=== PATIENT | female | born 1970 | race African-American/Black ===

== ENCOUNTER 2016-07-19 19:18 | Inpatient (IN) | payer MEDICAID ==
[~2016-07-19] VITALS: Ht 177.8 cm; Wt 106.6 kg
[2016-07-19] MEDS ORDERED: ONDANSETRON HCL 4MG/2ML VIAL IV STA (19:47)
[2016-07-19] MEDS ORDERED: MORPHINE SULFATE 4 MG/ML CPJ (NOT FOR IM USE) IV STA (19:47)
[2016-07-19] MEDS ORDERED: METHYLPREDNISOLONE SOD SUCC 125 MG/2 ML VIAL IV STA (19:47)
[2016-07-19] MEDS ORDERED: AZITHROMYCIN 500 MG TABLET PO ONE (20:00)
[2016-07-19] MEDS ORDERED: CEFTRIAXONE 1 G PREMIX 50 ML IV ONE (20:00)
[2016-07-19] MEDS ORDERED: IPRATROPIUM/ALBUTEROL 0.5-3(2.5)MG/3ML NEB HHN ONE (20:00)
[2016-07-19] MEDS ORDERED: MAGNESIUM 2 G PREMIX 50 ML IV ONE (20:00)
[2016-07-19 20:09] LABS: BASOPHILS % 0.5 % (0.0-2.0); EOSINOPHILS % 0.4 % (0.0-5.0); HEMATOCRIT. 36.5 % (36.0-48.0); HEMOGLOBIN. 11.8 g/dL (12.0-16.0); LYMPHOCYTES % 35.3 % (20.0-50.0); MEAN CORPUSCULAR HEMOGLOBIN 26.9 pg (28.0-32.0); MEAN CORPUSCULAR HGB CONC 32.2 g/dL (31.0-37.0); MEAN CORPUSCULAR VOLUME 83.5 fL (81.0-99.0); MEAN PLATELET VOLUME 9.4 fl (7.4-10.4); MONOCYTES % 11.4 % (2.0-8.0); NEUTROPHILS % 52.4 % (40.0-76.0); PLATELET 181 x1000/uL (130-400); RED BLOOD CELL COUNT 4.37 mill/uL (4.2-5.4); RED CELL DISTRIBUTION WIDTH 18.9 % (11.6-14.6); WHITE BLOOD COUNT 11.3 x1000/uL (4.5-11.0)
[2016-07-19 20:17] LABS: PARTIAL THROMBOPLASTIN TIME 24.1 sec (24.0-34.0); PROTHROMBIN TIME 10.3 sec
[2016-07-19 20:23] LABS: BG BASE EXCESS -1.3 mmol/L (-2.0-2.0); BG CARBOXYHEMOGLOBIN 1.9 % (0.5-1.5); BG DEOXYHEMOGLOBIN 1.4 % (0.0-5.0); BG FRACTION INSPIRED OXYGEN 50; BG HCO3 ACT 22.6 mmol/L (22.0-26.0); BG METHEMOGLOBIN 0.1 % (0.0-1.5); BG OXYGEN SATURATION 98.6 % (92.0-98.5); BG OXYHEMOGLOBIN 96.6 % (94.0-97.0); BG PCO2 35.3 mmHg (35.0-45.0); BG PH 7.425 (7.350-7.450); BG PO2 134.3 mmHg (75.0-100.0); BG SAMPLE SITE RIGHT RADIAL; BG VENT MODE MASK - AEROSOL
[2016-07-19 20:26] LABS: ALANINE AMINOTRANSFERASE 20 IU/L (13-61); ALBUMIN 3.3 g/dL (3.4-5.0); ANION GAP 11; CALCIUM 8.6 mg/dL (8.5-10.1); CARBON DIOXIDE 27 mEq/L (21-32); CHLORIDE 106 mEq/L (98-107); CREATINE KINASE 96 IU/L (26-192); INDEX HEMOLYSI 1 (1-3); INDEX ICTERIC 1 (1-4); INDEX LIPEMIC 1 (1-3); LIPASE 145 IU/L (73-393); NT PRO B-TYPE NATRIURETIC PEP 130 pg/mL (5-125); TROPONIN I < 0.02 ng/mL (0.00-0.04); UREA NITROGEN BLOOD 13 mg/dL (7-21); eGFR > 60 mL/min (>60)
[2016-07-19 20:28] LABS: HCG SCREEN NEGATIVE
[2016-07-19 23:09] LABS: CLARITY URINE CLEAR (CLEAR); COLOR URINE YELLOW (YELLOW); GLUCOSE URINE NEGATIVE (NEGATIVE); KETONES URINE NEGATIVE (NEGATIVE); LEUKOCYTE ESTERASE URINE TRACE (NEGATIVE); NITRITE URINE NEGATIVE (NEGATIVE); OCCULT BLOOD URINE TRACE (NEGATIVE); PH URINE 5.5 (4.5-8.0); PROTEIN URINE NEGATIVE (NEGATIVE); SPECIFIC GRAVITY URINE 1.016 (1.005-1.030); UROBILINOGEN URINE 0.2 E.U./dL (0.2-1.0)
[2016-07-19 23:23] LABS: *AMPHETAMINES SCREEN URINE NEGATIVE (NEGATIVE); *BARBITURATES SCREEN URINE NEGATIVE (NEGATIVE); *BENZODIAZEPINES SCREEN URINE NEGATIVE (NEGATIVE); *COCAINE SCREEN URINE NEGATIVE (NEGATIVE); CANNABINOID URINE SCREEN NEGATIVE (NEGATIVE); ECSTASY MDMA SCREEN URINE NEGATIVE (NEGATIVE); METHADONE URINE SCREEN NEGATIVE (NEGATIVE); PHENCYCLIDINE URINE SCREEN NEGATIVE (NEGATIVE); RBC URINE 0-2 /hpf (0-2); SQUAMOUS EPITHELIAL CELL URINE FEW /lpf (RARE/1+); WBC URINE 0-2 /hpf (0-2)
[2016-07-19 23:24] LABS: BACTERIA URINE 1+
[2016-07-19 23:26] LABS: OPIATES URINE SCREEN PRESUMTIVE POSITIVE (NEGATIVE)
[2016-07-20] MEDS ORDERED: KETOROLAC 30MG/ML VIAL IV ONE (00:15)
[2016-07-20] MEDS ORDERED: MORPHINE SULFATE 4 MG/ML CPJ (NOT FOR IM USE) IV ONE (00:15)
[2016-07-20] MEDS ORDERED: ONDANSETRON HCL 4MG/2ML VIAL IV ONE (00:15)
[2016-07-20 04:00] VITALS: BP 133/69
[2016-07-20 04:56] VITALS: BP 133/69
[2016-07-20] MEDS ORDERED: IPRATROPIUM/ALBUTEROL 0.5-3(2.5)MG/3ML NEB HHN PRN ×2 (06:15→14:15)
[2016-07-20] MEDS: METHYLPREDNISOLONE SOD SUCC 40 MG/ML VIAL IV SCH ×3 (07:00→21:35)
[2016-07-20] MEDS ORDERED: PRED10SO PO (07:24)
[2016-07-20 07:51] LABS: HEMATOCRIT. 33.9 % (36.0-48.0); HEMOGLOBIN. 10.9 g/dL (12.0-16.0); MEAN CORPUSCULAR HEMOGLOBIN 26.8 pg (28.0-32.0); MEAN CORPUSCULAR VOLUME 83.7 fL (81.0-99.0); PLATELET 176 x1000/uL (130-400); RED BLOOD CELL COUNT 4.06 mill/uL (4.2-5.4); RED CELL DISTRIBUTION WIDTH 18.7 % (11.6-14.6); WHITE BLOOD COUNT 9.9 x1000/uL (4.5-11.0)
[2016-07-20 08:00] VITALS: BP 123/82
[2016-07-20 08:23] LABS: CREATINE KINASE 72 IU/L (26-192); CREATINE KINASE MB FRACTION 0.6 ng/mL (0.5-3.6); HDL CHOLESTEROL 64 mg/dL (40-59); INDEX HEMOLYSI 1 (1-3); INDEX ICTERIC 1 (1-4); INDEX LIPEMIC 1 (1-3); LDL CHOLESTEROL 102 mg/dL (5-100); TRIGLYCERIDE 28 mg/dL (0-150); TROPONIN I < 0.02 ng/mL (0.00-0.04)
[2016-07-20] MEDS ORDERED: ENOXAPARIN 30MG/0.3ML SYR SUBCUT SCH (09:00)
[2016-07-20] MEDS ORDERED: ACETAMINOPHEN 325MG TABLET PO PRN (09:15)
[2016-07-20 11:16] LABS: ATYPICAL LYMPHOCYTES 2
[2016-07-20 11:17] LABS: PLATELET ESTIMATE NORMAL
[2016-07-20 12:00] VITALS: BP 133/87
[2016-07-20] MEDS: MORPHINE SULFATE 2 MG/ML CPJ (NOT FOR IM USE) IV PRN ×2 (14:02→19:22)
[2016-07-20] MEDS ORDERED: LIDOCAINE HCL/PF 1% 2ML VIAL ONE (15:24)
[2016-07-20 16:00] VITALS: BP 153/92
[2016-07-20 16:00] LABS: CREATINE KINASE 68 IU/L (26-192); CREATINE KINASE MB FRACTION < 0.5 ng/mL (0.5-3.6); INDEX HEMOLYSI 1 (1-3); TROPONIN I < 0.02 ng/mL (0.00-0.04)
[2016-07-20 16:00] LABS: BG BASE EXCESS -0.6 mmol/L (-2.0-2.0); BG CARBOXYHEMOGLOBIN 0.4 % (0.5-1.5); BG DEOXYHEMOGLOBIN 5.1 % (0.0-5.0); BG FRACTION INSPIRED OXYGEN 21; BG HCO3 ACT 23.5 mmol/L (22.0-26.0); BG OXYGEN SATURATION 94.9 % (92.0-98.5); BG OXYHEMOGLOBIN 94.5 % (94.0-97.0); BG PCO2 36.4 mmHg (35.0-45.0); BG PH 7.427 (7.350-7.450); BG PO2 75.8 mmHg (75.0-100.0); BG SAMPLE SITE RIGHT RADIAL; BG VENT MODE ROOM AIR
[2016-07-20 20:00] VITALS: BP 147/93
[2016-07-20] MEDS: CEFTRIAXONE 1 G PREMIX 50 ML IV SCH (20:41)
[2016-07-20] MEDS: GUAIFENESIN 600MG ER TABLET PO SCH (20:42)
[2016-07-20] MEDS: ENOXAPARIN 30MG/0.3ML SYR SUBCUT SCH (20:42)
[2016-07-20] MEDS: IPRATROPIUM/ALBUTEROL 0.5-3(2.5)MG/3ML NEB HHN SCH (21:27)
[2016-07-20] MEDS: LOSARTAN POTASSIUM 25 MG TABLET PO SCH (21:33)
[2016-07-20] MEDS: AZITHROMYCIN 500 MG in DEXT 5% WATER 250 ML IV SCH (21:34)
[2016-07-20] MEDS: ATORVASTATIN CALCIUM 40MG TABLET PO SCH (21:34)
[2016-07-21] VITALS: BP 135/85
[2016-07-21] MEDS: IPRATROPIUM/ALBUTEROL 0.5-3(2.5)MG/3ML NEB HHN SCH ×6 (00:37→20:49)
[2016-07-21] MEDS: MORPHINE SULFATE 2 MG/ML CPJ (NOT FOR IM USE) IV PRN ×2 (03:08→13:46)
[2016-07-21 04:00] VITALS: BP 140/85
[2016-07-21] MEDS: METHYLPREDNISOLONE SOD SUCC 40 MG/ML VIAL IV SCH ×2 (06:20→13:46)
[2016-07-21] MEDS: GUAIFENESIN 200MG/10ML SUGAR FREE UDC PO PRN ×2 (06:20→13:53)
[2016-07-21 06:36] LABS: BASOPHILS % 0.3 % (0.0-2.0); HEMATOCRIT. 32.7 % (36.0-48.0); HEMOGLOBIN. 10.4 g/dL (12.0-16.0); LYMPHOCYTES % 17.8 % (20.0-50.0); MEAN CORPUSCULAR HEMOGLOBIN 26.6 pg (28.0-32.0); MEAN CORPUSCULAR HGB CONC 31.9 g/dL (31.0-37.0); MEAN CORPUSCULAR VOLUME 83.6 fL (81.0-99.0); MEAN PLATELET VOLUME 10.5 fl (7.4-10.4); MONOCYTES % 6.1 % (2.0-8.0); NEUTROPHILS % 75.8 % (40.0-76.0); PLATELET 180 x1000/uL (130-400); RED BLOOD CELL COUNT 3.91 mill/uL (4.2-5.4); RED CELL DISTRIBUTION WIDTH 18.9 % (11.6-14.6); WHITE BLOOD COUNT 14.9 x1000/uL (4.5-11.0)
[2016-07-21 07:33] LABS: ANION GAP 12; CALCIUM 8.2 mg/dL (8.5-10.1); CARBON DIOXIDE 25 mEq/L (21-32); CHLORIDE 106 mEq/L (98-107); INDEX HEMOLYSI 1 (1-3); INDEX ICTERIC 1 (1-4); INDEX LIPEMIC 1 (1-3); MAGNESIUM 2.6 mg/dL (1.8-2.4); UREA NITROGEN BLOOD 17 mg/dL (7-21); eGFR > 60 mL/min (>60)
[2016-07-21 07:54] VITALS: BP 124/75
[2016-07-21] MEDS: ASPIRIN 81MG TABLET PO SCH (08:59)
[2016-07-21] MEDS: ENOXAPARIN 30MG/0.3ML SYR SUBCUT SCH ×2 (09:00→21:25)
[2016-07-21] MEDS: GUAIFENESIN 600MG ER TABLET PO SCH ×2 (09:00→21:25)
[2016-07-21] MEDS: LOSARTAN POTASSIUM 25 MG TABLET PO SCH ×2 (09:00→21:25)
[2016-07-21 11:58] VITALS: BP 132/72
[2016-07-21 16:00] VITALS: BP 141/83
[2016-07-21 20:00] VITALS: BP 141/76
[2016-07-21] MEDS: CEFTRIAXONE 1 G PREMIX 50 ML IV SCH (20:14)
[2016-07-21] MEDS: ATORVASTATIN CALCIUM 40MG TABLET PO SCH (21:25)
[2016-07-21] MEDS: AZITHROMYCIN 500 MG in DEXT 5% WATER 250 ML IV SCH (21:25)
[2016-07-22] VITALS (7 sets, daily range): BP systolic 110–136; BP diastolic 59–75
[2016-07-22] MEDS: IPRATROPIUM/ALBUTEROL 0.5-3(2.5)MG/3ML NEB HHN SCH ×6 (00:44→19:55)
[2016-07-22] MEDS: GUAIFENESIN 200MG/10ML SUGAR FREE UDC PO PRN ×2 (01:04→05:44)
[2016-07-22] MEDS: MORPHINE SULFATE 2 MG/ML CPJ (NOT FOR IM USE) IV PRN (01:05)
[2016-07-22] MEDS: GUAIFENESIN 600MG ER TABLET PO SCH ×2 (09:04→20:42)
[2016-07-22] MEDS: PREDNISONE 20MG TABLET PO SCH (09:04)
[2016-07-22] MEDS: ENOXAPARIN 30MG/0.3ML SYR SUBCUT SCH ×2 (09:04→20:42)
[2016-07-22] MEDS: LOSARTAN POTASSIUM 25 MG TABLET PO SCH ×2 (09:04→20:43)
[2016-07-22] MEDS: ASPIRIN 81MG TABLET PO SCH (09:04)
[2016-07-22] MEDS: HYDROCODONE/ACETAMINOPHEN 5/325MG TABLET PO PRN (09:14)
[2016-07-22 12:18] LABS: BASOPHILS % 0.6 % (0.0-2.0); EOSINOPHILS % 0.1 % (0.0-5.0); HEMOGLOBIN. 10.8 g/dL (12.0-16.0); MEAN CORPUSCULAR HEMOGLOBIN 26.8 pg (28.0-32.0); MEAN CORPUSCULAR HGB CONC 31.6 g/dL (31.0-37.0); MEAN CORPUSCULAR VOLUME 84.8 fL (81.0-99.0); MONOCYTES % 10.5 % (2.0-8.0); NEUTROPHILS % 67.8 % (40.0-76.0); PLATELET 164 x1000/uL (130-400); RED BLOOD CELL COUNT 4.02 mill/uL (4.2-5.4); RED CELL DISTRIBUTION WIDTH 18.9 % (11.6-14.6); WHITE BLOOD COUNT 15.4 x1000/uL (4.5-11.0)
[2016-07-22 13:18] LABS: ANION GAP 15; CALCIUM 8.3 mg/dL (8.5-10.1); CARBON DIOXIDE 25 mEq/L (21-32); CHLORIDE 107 mEq/L (98-107); INDEX HEMOLYSI 1 (1-3); INDEX ICTERIC 1 (1-4); INDEX LIPEMIC 1 (1-3); UREA NITROGEN BLOOD 14 mg/dL (7-21); eGFR > 60 mL/min (>60)
[2016-07-22] MEDS: CEFTRIAXONE 1 G PREMIX 50 ML IV SCH (19:27)
[2016-07-22] MEDS: AZITHROMYCIN 500 MG in DEXT 5% WATER 250 ML IV SCH (20:42)
[2016-07-22] MEDS: ATORVASTATIN CALCIUM 40MG TABLET PO SCH (20:42)
[2016-07-23] MEDS: GUAIFENESIN 200MG/10ML SUGAR FREE UDC PO PRN ×2 (01:01→08:58)
[2016-07-23] MEDS: HYDROCODONE/ACETAMINOPHEN 5/325MG TABLET PO PRN (01:01)
[2016-07-23] MEDS: IPRATROPIUM/ALBUTEROL 0.5-3(2.5)MG/3ML NEB HHN SCH ×5 (01:08→21:14)
[2016-07-23 04:00] VITALS: BP 129/74
[2016-07-23 06:01] LABS: ANION GAP 12; CALCIUM 7.9 mg/dL (8.5-10.1); CARBON DIOXIDE 28 mEq/L (21-32); CHLORIDE 106 mEq/L (98-107); INDEX HEMOLYSI 1 (1-3); INDEX ICTERIC 1 (1-4); INDEX LIPEMIC 1 (1-3); MAGNESIUM 2.2 mg/dL (1.8-2.4); UREA NITROGEN BLOOD 17 mg/dL (7-21); eGFR > 60 mL/min (>60)
[2016-07-23 06:46] LABS: BASOPHILS % 0.3 % (0.0-2.0); EOSINOPHILS % 0.5 % (0.0-5.0); HEMATOCRIT. 31.8 % (36.0-48.0); MEAN CORPUSCULAR HEMOGLOBIN 26.5 pg (28.0-32.0); MEAN CORPUSCULAR HGB CONC 31.5 g/dL (31.0-37.0); MEAN CORPUSCULAR VOLUME 84.2 fL (81.0-99.0); MEAN PLATELET VOLUME 10.7 fl (7.4-10.4); MONOCYTES % 9.6 % (2.0-8.0); NEUTROPHILS % 47.6 % (40.0-76.0); PLATELET 175 x1000/uL (130-400); RED BLOOD CELL COUNT 3.77 mill/uL (4.2-5.4); RED CELL DISTRIBUTION WIDTH 18.7 % (11.6-14.6); WHITE BLOOD COUNT 15.2 x1000/uL (4.5-11.0)
[2016-07-23 08:00] VITALS: BP 134/93
[2016-07-23] MEDS: ASPIRIN 81MG TABLET PO SCH (08:55)
[2016-07-23] MEDS: LOSARTAN POTASSIUM 25 MG TABLET PO SCH ×2 (08:55→20:57)
[2016-07-23] MEDS: PREDNISONE 20MG TABLET PO SCH (08:55)
[2016-07-23] MEDS: ENOXAPARIN 30MG/0.3ML SYR SUBCUT SCH ×2 (08:55→20:57)
[2016-07-23] MEDS: GUAIFENESIN 600MG ER TABLET PO SCH ×2 (08:55→20:57)
[2016-07-23 12:00] VITALS: BP 128/88
[2016-07-23 15:47] VITALS: BP 144/86
[2016-07-23 20:00] VITALS: BP 130/70
[2016-07-23] MEDS: AZITHROMYCIN 500 MG in DEXT 5% WATER 250 ML IV SCH (20:56)
[2016-07-23] MEDS: ATORVASTATIN CALCIUM 40MG TABLET PO SCH (20:57)
[2016-07-23] MEDS: CEFTRIAXONE 1 G PREMIX 50 ML IV SCH (20:57)
[2016-07-24] VITALS: BP 123/64
[2016-07-24] MEDS: IPRATROPIUM/ALBUTEROL 0.5-3(2.5)MG/3ML NEB HHN SCH ×4 (00:42→12:00)
[2016-07-24] MEDS: HYDROCODONE/ACETAMINOPHEN 5/325MG TABLET PO PRN ×2 (00:51→09:35)
[2016-07-24] MEDS: GUAIFENESIN 200MG/10ML SUGAR FREE UDC PO PRN (00:51)
[2016-07-24 04:00] VITALS: BP 124/72
[2016-07-24 08:00] VITALS: BP 139/89
[2016-07-24] MEDS: ENOXAPARIN 30MG/0.3ML SYR SUBCUT SCH (09:22)
[2016-07-24] MEDS: ASPIRIN 81MG TABLET PO SCH (09:23)
[2016-07-24] MEDS: GUAIFENESIN 600MG ER TABLET PO SCH (09:23)
[2016-07-24] MEDS: LOSARTAN POTASSIUM 25 MG TABLET PO SCH (09:23)
[2016-07-24] MEDS: PREDNISONE 20MG TABLET PO SCH (09:23)
[2016-07-24 12:00] VITALS: BP 128/66
[2016-07-24 13:30] VITALS: BP 128/66
== END 2016-07-24 15:15 | disposition home or self-care (01) | DRG 141 ==
LOC: ER 19:30 → 6WST 20:57
PROVIDERS: ADMIT Internal Medicine; ATTEND Internal Medicine
DX: J45.901 Unspecified asthma with (acute) exacerbation (principal); J96.00 Acute respiratory failure, unspecified whether with hypoxia or hypercapnia; I50.23 Acute on chronic systolic (congestive) heart failure; J18.9 Pneumonia, unspecified organism; R65.10 Systemic inflammatory response syndrome (SIRS) of non-infectious origin without acute organ dysfunction; I11.0 Hypertensive heart disease with heart failure; N39.0 Urinary tract infection, site not specified; E66.01 Morbid (severe) obesity due to excess calories; D64.9 Anemia, unspecified; D72.829 Elevated white blood cell count, unspecified; F17.210 Nicotine dependence, cigarettes, uncomplicated; I25.119 Atherosclerotic heart disease of native coronary artery with unspecified angina pectoris; I51.7 Cardiomegaly; J42 Unspecified chronic bronchitis; R63.4 Abnormal weight loss; L30.9 Dermatitis, unspecified; E78.5 Hyperlipidemia, unspecified; N89.8 Other specified noninflammatory disorders of vagina; T38.0X5A Adverse effect of glucocorticoids and synthetic analogues, initial encounter; Z79.899 Other long term (current) drug therapy; Z79.82 Long term (current) use of aspirin; Z82.49 Family history of ischemic heart disease and other diseases of the circulatory system; Z68.33 Body mass index [BMI] 33.0-33.9, adult
CPT/HCPCS: 36415; 36600; 71010; 80048; 80053; 80061; 80305; 81001; 82375; 82550; 82553; 82805; 83605; 83690; 83735; 83880; 84484; 84703; 85007; 85025; 85027; 85610; 85730; 87040; 87070; 87086; 93005; 93306; 94640; 94664; 96365; 96375; 96376; 99285; 99406; J0456; J0696; J1650; J1885; J2270; J2405; J2920; J2930; J3475; J3490; J7040; J7060; J7512; J7620

== ENCOUNTER 2016-09-27 14:27 | Emergency (ER) | payer MEDICAID ==
[~2016-09-27] VITALS: Ht 177.8 cm; Wt 123.0 kg
[~2016-09-27 14:27] MED LIST: PRED10SO PO
[2016-09-27] MEDS ORDERED: LIDOCAINE HCL/PF 1% 2ML VIAL ONE (15:26)
[2016-09-27 15:51] LABS: BASOPHILS % 0.7 % (0.0-2.0); EOSINOPHILS % 0.8 % (0.0-5.0); HEMATOCRIT. 37.5 % (36.0-48.0); HEMOGLOBIN. 11.9 g/dL (12.0-16.0); LYMPHOCYTES % 33.5 % (20.0-50.0); MEAN CORPUSCULAR HEMOGLOBIN 27.3 pg (28.0-32.0); MEAN CORPUSCULAR HGB CONC 31.9 g/dL (31.0-37.0); MEAN CORPUSCULAR VOLUME 85.8 fL (81.0-99.0); MEAN PLATELET VOLUME 10.1 fl (7.4-10.4); MONOCYTES % 7.4 % (2.0-8.0); NEUTROPHILS % 57.6 % (40.0-76.0); PLATELET 208 x1000/uL (130-400); RED BLOOD CELL COUNT 4.37 mill/uL (4.2-5.4); RED CELL DISTRIBUTION WIDTH 18.8 % (11.6-14.6); WHITE BLOOD COUNT 14.2 x1000/uL (4.5-11.0)
[2016-09-27 16:03] LABS: ALANINE AMINOTRANSFERASE 20 IU/L (13-61); ALBUMIN 3.3 g/dL (3.4-5.0); ANION GAP 12; CALCIUM 8.9 mg/dL (8.5-10.1); CARBON DIOXIDE 28 mEq/L (21-32); CHLORIDE 106 mEq/L (98-107); INDEX HEMOLYSI 1 (1-3); INDEX ICTERIC 1 (1-4); INDEX LIPEMIC 1 (1-3); NT PRO B-TYPE NATRIURETIC PEP 162 pg/mL (5-125); TROPONIN I < 0.02 ng/mL (0.00-0.04); UREA NITROGEN BLOOD 14 mg/dL (7-21); eGFR > 60 mL/min (>60)
[2016-09-27] MEDS ORDERED: IPRATROPIUM BROMIDE (0.02%) 0.5MG/2.5ML NEB HHN STA (16:03)
[2016-09-27] MEDS ORDERED: METHYLPREDNISOLONE SOD SUCC 125 MG/2 ML VIAL IV STA (16:03)
[2016-09-27] MEDS: ALBUTEROL (0.083%) 2.5MG/3ML NEB HHN SCH ×3 (16:27→17:30)
[2016-09-27 16:51] LABS: BG BASE EXCESS -0.1 mmol/L (-2.0-2.0); BG CARBOXYHEMOGLOBIN 2.9 % (0.5-1.5); BG DEOXYHEMOGLOBIN 3.5 % (0.0-5.0); BG FRACTION INSPIRED OXYGEN 21; BG HCO3 ACT 23.7 mmol/L (22.0-26.0); BG METHEMOGLOBIN 0.1 % (0.0-1.5); BG OXYGEN SATURATION 96.4 % (92.0-98.5); BG OXYHEMOGLOBIN 93.5 % (94.0-97.0); BG PCO2 35.8 mmHg (35.0-45.0); BG PH 7.438 (7.350-7.450); BG PO2 84.3 mmHg (75.0-100.0); BG SAMPLE SITE RIGHT RADIAL; BG TOTAL HEMOGLOBIN 12.4 g/dL (12.0-18.0); BG VENT MODE ROOM AIR
[2016-09-27 19:31] VITALS: BP 134/98
== END 2016-09-27 21:45 | disposition home or self-care (01) ==
LOC: ER 15:14
DX: J45.901 Unspecified asthma with (acute) exacerbation (principal); F17.200 Nicotine dependence, unspecified, uncomplicated; I10 Essential (primary) hypertension; Z85.3 Personal history of malignant neoplasm of breast; Z90.89 Acquired absence of other organs
CPT/HCPCS: 36415; 36600; 71010; 80053; 82375; 82805; 83880; 84484; 85025; 85610; 93005; 94640; 96374; 99285; J2930; J3490; J7611; Z7610

== ENCOUNTER 2016-12-17 19:51 | Emergency (ER) | payer MEDICAID ==
[~2016-12-17] VITALS: Ht 177.8 cm; Wt 125.0 kg
[2016-12-17] MEDS ORDERED: METHYLPREDNISOLONE SOD SUCC 125 MG/2 ML VIAL IV ONE (21:15)
[2016-12-17] MEDS ORDERED: IPRATROPIUM/ALBUTEROL 0.5-3(2.5)MG/3ML NEB HHN ONE (21:15)
[2016-12-17] MEDS ORDERED: IPRATROPIUM BROMIDE (0.02%) 0.5MG/2.5ML NEB HHN ONE (22:00)
[2016-12-17] MEDS ORDERED: ALBUTEROL (0.083%) 2.5MG/3ML NEB HHN ONE (22:00)
[2016-12-18 00:11] LABS: CLARITY URINE CLEAR (CLEAR); COLOR URINE YELLOW (YELLOW); GLUCOSE URINE 1+ (NEGATIVE); KETONES URINE NEGATIVE (NEGATIVE); LEUKOCYTE ESTERASE URINE NEGATIVE (NEGATIVE); NITRITE URINE NEGATIVE (NEGATIVE); OCCULT BLOOD URINE 1+ (NEGATIVE); PROTEIN URINE NEGATIVE (NEGATIVE); SPECIFIC GRAVITY URINE 1.018 (1.005-1.030)
[2016-12-18 00:21] LABS: *AMPHETAMINES SCREEN URINE NEGATIVE (NEGATIVE); *BARBITURATES SCREEN URINE NEGATIVE (NEGATIVE); *BENZODIAZEPINES SCREEN URINE NEGATIVE (NEGATIVE); *COCAINE SCREEN URINE NEGATIVE (NEGATIVE); METHADONE URINE SCREEN NEGATIVE (NEGATIVE); OPIATES URINE SCREEN NEGATIVE (NEGATIVE); PHENCYCLIDINE URINE SCREEN NEGATIVE (NEGATIVE)
[2016-12-18 00:34] LABS: CHLORIDE 106 mEq/L (98-107)
[2016-12-18 00:45] LABS: CARBON DIOXIDE 21 mEq/L (21-32)
[2016-12-18] MEDS ORDERED: ACETAMINOPHEN 500MG TABLET PO ONE (00:45)
[2016-12-18 00:46] LABS: CANNABINOID URINE SCREEN PRESUMTIVE POSITIVE (NEGATIVE)
[2016-12-18 00:57] LABS: BASOPHILS % 0.4 % (0.0-2.0); EOSINOPHILS % 0.3 % (0.0-5.0); HEMATOCRIT. 36.9 % (36.0-48.0); HEMOGLOBIN. 11.9 g/dL (12.0-16.0); LYMPHOCYTES % 9.5 % (20.0-50.0); MEAN CORPUSCULAR HEMOGLOBIN 27.9 pg (28.0-32.0); MEAN CORPUSCULAR VOLUME 86.6 fL (81.0-99.0); MEAN PLATELET VOLUME 10.9 fl (7.4-10.4); MONOCYTES % 2.3 % (2.0-8.0); NEUTROPHILS % 87.5 % (40.0-76.0); PLATELET 179 x1000/uL (130-400); RED BLOOD CELL COUNT 4.27 mill/uL (4.2-5.4); RED CELL DISTRIBUTION WIDTH 16.9 % (11.6-14.6)
[2016-12-18] MEDS ORDERED: POTASSIUM CHLORIDE INJ 40 MEQ in DEXT 5% WATER 500 ML IV ONE (02:30)
[2016-12-18] MEDS ORDERED: POTASSIUM CHLORIDE 20MEQ TABLET SR PO ONE (03:00)
[2016-12-18 03:10] VITALS: BP 165/68
== END 2016-12-18 03:12 | disposition home or self-care (01) ==
LOC: ER 19:51 → CANBEDREQ 12-18 06:53
DX: J45.901 Unspecified asthma with (acute) exacerbation (principal); E87.6 Hypokalemia; I10 Essential (primary) hypertension; F17.210 Nicotine dependence, cigarettes, uncomplicated
CPT/HCPCS: 36415; 71010; 80053; 80305; 81001; 83880; 85025; 93005; 94640; 94644; 96374; 99285; J2930; J7611; Z7610; 81003; J3480; J7060; J7620

== ENCOUNTER 2017-12-06 16:16 | Inpatient (IN) | payer MEDICAID ==
[~2017-12-06] VITALS: Ht 177.8 cm; Wt 107.6 kg
[2017-12-06] MEDS ORDERED: IPRATROPIUM BROMIDE (0.02%) 0.5MG/2.5ML NEB HHN STA (17:04)
[2017-12-06] MEDS ORDERED: ALBUTEROL (0.083%) 2.5MG/3ML NEB HHN STA (17:04)
[2017-12-06] MEDS ORDERED: PREDNISONE 20MG TABLET PO STA (17:04)
[2017-12-06 18:34] LABS: BASOPHILS % 0.9 % (0.0-2.0); EOSINOPHILS % 2.7 % (0.0-5.0); HEMATOCRIT. 35.3 % (36.0-48.0); HEMOGLOBIN. 11.3 g/dL (12.0-16.0); LYMPHOCYTES % 32.7 % (20.0-50.0); MEAN CORPUSCULAR HEMOGLOBIN 28.4 pg (28.0-32.0); MEAN CORPUSCULAR VOLUME 88.3 fL (81.0-99.0); MEAN PLATELET VOLUME 10.5 fl (7.4-10.4); MONOCYTES % 9.9 % (2.0-8.0); NEUTROPHILS % 53.8 % (40.0-76.0); PLATELET 178 x1000/uL (130-400); RED BLOOD CELL COUNT 3.99 mill/uL (4.2-5.4); RED CELL DISTRIBUTION WIDTH 16.1 % (11.6-14.6)
[2017-12-06 18:36] LABS: CHLORIDE 110 mEq/L (98-107)
[2017-12-06 18:37] LABS: INR 1.1; PROTHROMBIN TIME 10.9 sec (9.4-11.6)
[2017-12-06] MEDS ORDERED: ALBUTEROL (0.5%) 2.5MG/0.5ML NEB HHN ONE ×3 (19:30→20:45)
[2017-12-06 21:23] LABS: CLARITY URINE CLEAR (CLEAR); COLOR URINE YELLOW (YELLOW); KETONES URINE NEGATIVE (NEGATIVE); LEUKOCYTE ESTERASE URINE NEGATIVE (NEGATIVE); NITRITE URINE NEGATIVE (NEGATIVE); OCCULT BLOOD URINE TRACE (NEGATIVE); PROTEIN URINE NEGATIVE (NEGATIVE); SPECIFIC GRAVITY URINE 1.021 (1.005-1.030)
[2017-12-06 23:20] VITALS: BP 152/91
[2017-12-06 23:21] VITALS: BP 152/91
[2017-12-06] MEDS ORDERED: LOSA50TA20 PO (23:54)
[2017-12-07] MEDS ORDERED: ACETAMINOPHEN 325MG TABLET PO PRN
[2017-12-07] MEDS ORDERED: ONDANSETRON 4MG ODT PO PRN
[2017-12-07] MEDS ORDERED: CLONIDINE 0.1MG TABLET PO PRN
[2017-12-07] MEDS: GUAIFENESIN-DM 200MG-20MG/10ML UDC PO PRN ×2 (00:23→11:53)
[2017-12-07] MEDS: IPRATROPIUM/ALBUTEROL 0.5-3(2.5)MG/3ML NEB HHN PRN ×2 (00:39→07:56)
[2017-12-07 03:57] VITALS: BP 151/70
[2017-12-07 07:12] LABS: BASOPHILS % 0.3 % (0.0-2.0); HEMATOCRIT. 36.5 % (36.0-48.0); HEMOGLOBIN. 11.9 g/dL (12.0-16.0); LYMPHOCYTES % 12.1 % (20.0-50.0); MEAN CORPUSCULAR HEMOGLOBIN 28.9 pg (28.0-32.0); MEAN CORPUSCULAR VOLUME 88.5 fL (81.0-99.0); MEAN PLATELET VOLUME 10.7 fl (7.4-10.4); MONOCYTES % 3.5 % (2.0-8.0); NEUTROPHILS % 84.1 % (40.0-76.0); PLATELET 184 x1000/uL (130-400); RED BLOOD CELL COUNT 4.12 mill/uL (4.2-5.4); RED CELL DISTRIBUTION WIDTH 16.4 % (11.6-14.6)
[2017-12-07 08:00] VITALS: BP 153/70
[2017-12-07] MEDS ORDERED: LOSARTAN POTASSIUM 50 MG TABLET PO SCH (09:00)
[2017-12-07] MEDS ORDERED: MEDICATION NOT ON FORMULARY EA (Losartan Potassium 50 MG) PO SCH (09:00)
[2017-12-07] MEDS ORDERED: METHYLPREDNISOLONE SOD SUCC 40 MG/ML VIAL IV SCH (10:00)
[2017-12-07] MEDS ORDERED: BUDESONIDE 0.5MG/2ML NEB HHN SCH (11:00)
[2017-12-07] MEDS ORDERED: LORATADINE 10MG TABLET PO SCH (11:00)
[2017-12-07] MEDS ORDERED: FAMOTIDINE 20MG/2ML VIAL IV SCH (11:00)
[2017-12-07 12:00] VITALS: BP 147/62
[2017-12-07] MEDS ORDERED: IPRATROPIUM/ALBUTEROL 0.5-3(2.5)MG/3ML NEB HHN SCH (12:00)
[2017-12-07 12:34] VITALS: BP 147/62
[2017-12-07] MEDS ORDERED: MONTELUKAST SODIUM 10MG TABLET PO SCH (17:00)
[2017-12-07] MEDS ORDERED: PREDNISONE 20MG TABLET PO SCH (17:40)
== END 2017-12-07 12:50 | disposition home or self-care (01) | DRG 140 ==
LOC: ER 16:47 → 8WST 21:22 → EDBEDREQ 21:23 → ENRESERV 21:33
PROVIDERS: ADMIT Internal Medicine; ATTEND Internal Medicine
DX: J44.1 Chronic obstructive pulmonary disease with (acute) exacerbation (principal); J96.00 Acute respiratory failure, unspecified whether with hypoxia or hypercapnia; J84.9 Interstitial pulmonary disease, unspecified; E44.0 Moderate protein-calorie malnutrition; E87.8 Other disorders of electrolyte and fluid balance, not elsewhere classified; J45.901 Unspecified asthma with (acute) exacerbation; I11.9 Hypertensive heart disease without heart failure; D64.9 Anemia, unspecified; F17.210 Nicotine dependence, cigarettes, uncomplicated; F12.90 Cannabis use, unspecified, uncomplicated; E87.6 Hypokalemia; E66.9 Obesity, unspecified; Z85.3 Personal history of malignant neoplasm of breast; Z68.34 Body mass index [BMI] 34.0-34.9, adult; Z71.6 Tobacco abuse counseling; Z22.322 Carrier or suspected carrier of Methicillin resistant Staphylococcus aureus
CPT/HCPCS: 36415; 71045; 80053; 81003; 83880; 84484; 85025; 85610; 93005; 99285; J2920; J3490; J7512; J7611; J7620

== ENCOUNTER 2018-06-29 19:43 | Inpatient (IN) | payer MEDICAID ==
[~2018-06-29] VITALS: Ht 177.8 cm; Wt 117.9 kg
[~2018-06-29 19:43] MED LIST changes: +LOSA50TA20 PO; -PRED10SO PO
[2018-06-29] MEDS ORDERED: IPRATROPIUM BROMIDE (0.02%) 0.5MG/2.5ML NEB HHN STA (20:15)
[2018-06-29] MEDS ORDERED: PREDNISONE 20MG TABLET PO STA (20:15)
[2018-06-29] MEDS ORDERED: ALBUTEROL (0.083%) 2.5MG/3ML NEB HHN STA ×2 (20:15→23:23)
[2018-06-29] MEDS ORDERED: MAGNESIUM 2 G PREMIX 50 ML IV ONE (23:30)
[2018-06-30] MEDS ORDERED: ACETAMINOPHEN 325MG TABLET PO PRN (01:30)
[2018-06-30] MEDS ORDERED: IPRATROPIUM/ALBUTEROL 0.5-3(2.5)MG/3ML NEB INH PRN (01:30)
[2018-06-30] MEDS ORDERED: MAGNESIUM/ALUMINUM HYDROXIDE/SIMETHICONE 30ML UDC PO PRN (01:30)
[2018-06-30] MEDS ORDERED: ONDANSETRON HCL 4MG/2ML INJ IV PRN (01:30)
[2018-06-30] MEDS ORDERED: DOCUSATE SODIUM 100MG CAPSULE PO PRN (01:30)
[2018-06-30 02:26] LABS: BASOPHILS % 0.6 % (0.0-2.0); EOSINOPHILS % 0.5 % (0.0-5.0); HEMATOCRIT. 38.5 % (36.0-48.0); HEMOGLOBIN. 12.2 g/dL (12.0-16.0); LYMPHOCYTES % 12.9 % (20.0-50.0); MEAN CORPUSCULAR HEMOGLOBIN 27.8 pg (28.0-32.0); MEAN CORPUSCULAR VOLUME 87.7 fL (81.0-99.0); MEAN PLATELET VOLUME 10.5 fl (7.4-10.4); MONOCYTES % 6.3 % (2.0-8.0); NEUTROPHILS % 79.7 % (40.0-76.0); PLATELET 185 x1000/uL (130-400); RED BLOOD CELL COUNT 4.39 mill/uL (4.2-5.4); RED CELL DISTRIBUTION WIDTH 16.4 % (11.6-14.6)
[2018-06-30 02:31] LABS: CHLORIDE 109 mEq/L (98-107)
[2018-06-30 03:19] LABS: *AMPHETAMINES SCREEN URINE NEGATIVE (NEGATIVE); *BARBITURATES SCREEN URINE NEGATIVE (NEGATIVE); *BENZODIAZEPINES SCREEN URINE NEGATIVE (NEGATIVE); *COCAINE SCREEN URINE NEGATIVE (NEGATIVE); METHADONE URINE SCREEN NEGATIVE (NEGATIVE); OPIATES URINE SCREEN NEGATIVE (NEGATIVE)
[2018-06-30 03:20] LABS: CANNABINOID URINE SCREEN NEGATIVE (NEGATIVE); PHENCYCLIDINE URINE SCREEN NEGATIVE (NEGATIVE)
[2018-06-30 06:55] LABS: CREATINE KINASE 115 IU/L (26-192)
[2018-06-30 06:56] LABS: CREATINE KINASE MB FRACTION < 1.0 ng/mL (0.5-3.6)
[2018-06-30 09:45] VITALS: BP 138/82
[2018-06-30] MEDS: ENOXAPARIN 30MG/0.3ML SYR SUBCUT SCH ×2 (09:45→21:00)
[2018-06-30 10:06] VITALS: BP 138/82
[2018-06-30] MEDS: METHYLPREDNISOLONE SOD SUCC 40 MG/ML VIAL IV SCH ×2 (10:12→17:44)
[2018-06-30] MEDS: GUAIFENESIN 200MG/10ML SUGAR FREE UDC PO PRN (10:19)
[2018-06-30 11:50] VITALS: BP 135/69
[2018-06-30 16:20] VITALS: BP 168/98
[2018-06-30 17:13] LABS: CREATINE KINASE 128 IU/L (26-192)
[2018-06-30 17:14] LABS: CREATINE KINASE MB FRACTION 1.1 ng/mL (0.5-3.6)
[2018-06-30] MEDS: CLONIDINE 0.1MG TABLET PO PRN (17:44)
[2018-06-30 20:00] VITALS: BP 163/76
[2018-06-30] MEDS: AMLODIPINE 5MG TABLET PO SCH (21:33)
[2018-07-01] VITALS: BP 138/81
[2018-07-01] MEDS: METHYLPREDNISOLONE SOD SUCC 40 MG/ML VIAL IV SCH ×3 (01:44→17:15)
[2018-07-01 04:00] VITALS: BP 138/74
[2018-07-01 07:28] LABS: BASOPHILS % 0.2 % (0.0-2.0); HEMATOCRIT. 36.7 % (36.0-48.0); HEMOGLOBIN. 11.8 g/dL (12.0-16.0); LYMPHOCYTES % 9.3 % (20.0-50.0); MEAN CORPUSCULAR HEMOGLOBIN 28.3 pg (28.0-32.0); MEAN CORPUSCULAR VOLUME 88.3 fL (81.0-99.0); MEAN PLATELET VOLUME 11.1 fl (7.4-10.4); MONOCYTES % 3.1 % (2.0-8.0); NEUTROPHILS % 87.4 % (40.0-76.0); PLATELET 187 x1000/uL (130-400); RED BLOOD CELL COUNT 4.16 mill/uL (4.2-5.4); RED CELL DISTRIBUTION WIDTH 16.5 % (11.6-14.6)
[2018-07-01 07:34] LABS: CHLORIDE 109 mEq/L (98-107)
[2018-07-01 07:43] LABS: LDL CHOLESTEROL 120 mg/dL (5-100)
[2018-07-01 07:45] LABS: HDL CHOLESTEROL 56 mg/dL (40-59)
[2018-07-01 08:00] VITALS: BP 170/77
[2018-07-01] MEDS: AMLODIPINE 5MG TABLET PO SCH (08:35)
[2018-07-01] MEDS: ENOXAPARIN 30MG/0.3ML SYR SUBCUT SCH ×2 (08:36→21:00)
[2018-07-01] MEDS ORDERED: INFLUENZA VIRUS VACCINE(AFLURIA) 0.5ML SYR IM ONE (09:00)
[2018-07-01 11:43] VITALS: BP 142/79
[2018-07-01] MEDS: BUDESONIDE 0.5MG/2ML NEB HHN SCH ×2 (12:48→21:03)
[2018-07-01] MEDS ORDERED: IPRATROPIUM/ALBUTEROL 0.5-3(2.5)MG/3ML NEB HHN PRN (13:45)
[2018-07-01] MEDS ORDERED: TERBUTALINE SULFATE 1MG/ML VIAL SUBCUT SCH (15:00)
[2018-07-01] MEDS: LORATADINE 10MG TABLET PO SCH (15:27)
[2018-07-01] MEDS: NICOTINE 14MG PATCH TD SCH (15:28)
[2018-07-01 15:41] VITALS: BP 149/69
[2018-07-01 20:00] VITALS: BP 130/79
[2018-07-01] MEDS: IPRATROPIUM/ALBUTEROL 0.5-3(2.5)MG/3ML NEB HHN SCH (20:13)
[2018-07-01] MEDS: GUAIFENESIN 600MG ER TABLET PO SCH (21:59)
[2018-07-01] MEDS: MONTELUKAST SODIUM 10MG TABLET PO SCH (22:00)
[2018-07-01] MEDS: FAMOTIDINE 20MG TABLET PO SCH (22:00)
[2018-07-01] MEDS: GUAIFENESIN 200MG/10ML SUGAR FREE UDC PO PRN (22:06)
[2018-07-02] VITALS: BP 135/72
[2018-07-02] MEDS: IPRATROPIUM/ALBUTEROL 0.5-3(2.5)MG/3ML NEB HHN SCH ×6 (00:03→21:09)
[2018-07-02] MEDS: METHYLPREDNISOLONE SOD SUCC 40 MG/ML VIAL IV SCH ×3 (02:52→17:02)
[2018-07-02 04:00] VITALS: BP 122/52
[2018-07-02 06:51] LABS: BASOPHILS % 0.1 % (0.0-2.0); HEMATOCRIT. 35.7 % (36.0-48.0); HEMOGLOBIN. 11.3 g/dL (12.0-16.0); LYMPHOCYTES % 11.1 % (20.0-50.0); MEAN CORPUSCULAR HEMOGLOBIN 27.9 pg (28.0-32.0); MEAN CORPUSCULAR VOLUME 88.3 fL (81.0-99.0); MEAN PLATELET VOLUME 11.2 fl (7.4-10.4); MONOCYTES % 7.1 % (2.0-8.0); NEUTROPHILS % 81.7 % (40.0-76.0); PLATELET 181 x1000/uL (130-400); RED BLOOD CELL COUNT 4.04 mill/uL (4.2-5.4); RED CELL DISTRIBUTION WIDTH 16.6 % (11.6-14.6)
[2018-07-02 07:06] LABS: CHLORIDE 111 mEq/L (98-107)
[2018-07-02 07:23] LABS: T4 FREE 0.79 ng/dL (0.76-1.46)
[2018-07-02 08:00] VITALS: BP_SYST 156; BP_SYST 168; BP_DIAS 73; BP_DIAS 94
[2018-07-02] MEDS: NICOTINE 14MG PATCH TD SCH ×2 (08:19→09:25)
[2018-07-02] MEDS: ENOXAPARIN 30MG/0.3ML SYR SUBCUT SCH ×3 (08:19→21:04)
[2018-07-02] MEDS: GUAIFENESIN 600MG ER TABLET PO SCH ×2 (08:20→21:02)
[2018-07-02] MEDS: LORATADINE 10MG TABLET PO SCH (08:20)
[2018-07-02] MEDS: AMLODIPINE 10MG TABLET PO SCH (08:20)
[2018-07-02] MEDS: BUDESONIDE 0.5MG/2ML NEB HHN SCH ×2 (09:29→21:03)
[2018-07-02 12:02] VITALS: BP 143/53
[2018-07-02] MEDS: CLONIDINE 0.1MG TABLET PO PRN (15:40)
[2018-07-02 16:00] VITALS: BP 179/99
[2018-07-02 20:00] VITALS: BP 139/73
[2018-07-02] MEDS: MONTELUKAST SODIUM 10MG TABLET PO SCH (21:02)
[2018-07-02] MEDS: FAMOTIDINE 20MG TABLET PO SCH (21:02)
[2018-07-03] VITALS: BP 124/70
[2018-07-03] MEDS: IPRATROPIUM/ALBUTEROL 0.5-3(2.5)MG/3ML NEB HHN SCH ×6 (01:00→21:03)
[2018-07-03] MEDS: METHYLPREDNISOLONE SOD SUCC 40 MG/ML VIAL IV SCH ×3 (01:18→17:27)
[2018-07-03 04:00] VITALS: BP 152/74
[2018-07-03 06:21] LABS: HEMATOCRIT. 36.5 % (36.0-48.0); HEMOGLOBIN. 11.6 g/dL (12.0-16.0); LYMPHOCYTES % 11.6 % (20.0-50.0); MONOCYTES % 7.6 % (2.0-8.0); NEUTROPHILS % 80.8 % (40.0-76.0); PLATELET 182 x1000/uL (130-400); RED BLOOD CELL COUNT 4.15 mill/uL (4.2-5.4); RED CELL DISTRIBUTION WIDTH 16.8 % (11.6-14.6)
[2018-07-03 06:55] LABS: CHLORIDE 110 mEq/L (98-107)
[2018-07-03 08:00] VITALS: BP 126/74
[2018-07-03] MEDS: ENOXAPARIN 30MG/0.3ML SYR SUBCUT SCH ×2 (08:39→20:55)
[2018-07-03] MEDS: BUDESONIDE 0.5MG/2ML NEB HHN SCH (08:41)
[2018-07-03] MEDS: GUAIFENESIN 600MG ER TABLET PO SCH ×2 (09:17→20:52)
[2018-07-03] MEDS: AMLODIPINE 10MG TABLET PO SCH (09:17)
[2018-07-03] MEDS: LORATADINE 10MG TABLET PO SCH (09:17)
[2018-07-03] MEDS: NICOTINE 14MG PATCH TD SCH (09:18)
[2018-07-03 12:00] VITALS: BP 151/68
[2018-07-03 16:00] VITALS: BP 135/78
[2018-07-03] MEDS: FAMOTIDINE 20MG TABLET PO SCH (20:52)
[2018-07-03] MEDS: MONTELUKAST SODIUM 10MG TABLET PO SCH (20:52)
[2018-07-04] VITALS: BP 141/71
[2018-07-04] MEDS: IPRATROPIUM/ALBUTEROL 0.5-3(2.5)MG/3ML NEB HHN SCH ×3 (00:24→10:26)
[2018-07-04] MEDS: METHYLPREDNISOLONE SOD SUCC 40 MG/ML VIAL IV SCH ×2 (01:02→09:10)
[2018-07-04 04:11] VITALS: BP 147/70
[2018-07-04 08:00] VITALS: BP 154/62
[2018-07-04] MEDS: GUAIFENESIN 600MG ER TABLET PO SCH (09:10)
[2018-07-04] MEDS: AMLODIPINE 10MG TABLET PO SCH (09:10)
[2018-07-04] MEDS: LORATADINE 10MG TABLET PO SCH (09:10)
[2018-07-04] MEDS: NICOTINE 14MG PATCH TD SCH (09:11)
[2018-07-04] MEDS: ENOXAPARIN 30MG/0.3ML SYR SUBCUT SCH (09:11)
[2018-07-04] MEDS ORDERED: FAMO20TA8 PO (11:57)
[2018-07-04] MEDS ORDERED: AMLO10TA80 PO (11:57)
[2018-07-04] MEDS ORDERED: MONT10TA21 PO (11:57)
[2018-07-04 12:04] VITALS: BP 129/84
== END 2018-07-04 12:30 | disposition home or self-care (01) | DRG 140 ==
LOC: ER 19:43 → 6EST 06-30 01:04 → ENRESERV 06-30 07:51 → 6EST 06-30 14:00
PROVIDERS: ADMIT Internal Medicine; ATTEND Internal Medicine
DX: J44.1 Chronic obstructive pulmonary disease with (acute) exacerbation (principal); J96.00 Acute respiratory failure, unspecified whether with hypoxia or hypercapnia; J45.901 Unspecified asthma with (acute) exacerbation; E87.8 Other disorders of electrolyte and fluid balance, not elsewhere classified; I11.9 Hypertensive heart disease without heart failure; J06.9 Acute upper respiratory infection, unspecified; E05.90 Thyrotoxicosis, unspecified without thyrotoxic crisis or storm; D72.823 Leukemoid reaction; E87.6 Hypokalemia; F17.210 Nicotine dependence, cigarettes, uncomplicated; D72.829 Elevated white blood cell count, unspecified; E66.9 Obesity, unspecified; Z92.3 Personal history of irradiation; Z92.21 Personal history of antineoplastic chemotherapy; Z85.3 Personal history of malignant neoplasm of breast; Z68.37 Body mass index [BMI] 37.0-37.9, adult; Z71.6 Tobacco abuse counseling; Z71.3 Dietary counseling and surveillance
CPT/HCPCS: 36415; 71045; 80048; 80061; 80305; 82550; 82553; 83036; 83735; 84100; 84439; 84443; 84481; 84484; 87070; 87804; 90686; 93005; 93970; 94640; 94644; 96365; 99285; J1650; J2920; J3105; J3475; J7512; J7611; J7620; J7626

== ENCOUNTER 2018-08-10 13:26 | Inpatient (IN) | payer MEDICAID ==
[~2018-08-10] VITALS: Ht 172.7 cm; Wt 130.6 kg
[~2018-08-10 13:26] MED LIST changes: +AMLO10TA80 PO; +FAMO20TA8 PO; +MONT10TA21 PO
[2018-08-10] MEDS ORDERED: ALBUTEROL (0.083%) 2.5MG/3ML NEB HHN STA ×2 (13:51→14:59)
[2018-08-10] MEDS ORDERED: IPRATROPIUM BROMIDE (0.02%) 0.5MG/2.5ML NEB HHN STA ×2 (13:51→14:59)
[2018-08-10] MEDS ORDERED: METHYLPREDNISOLONE SOD SUCC 125 MG/2 ML VIAL IV STA (13:51)
[2018-08-10] MEDS ORDERED: SODIUM CHLORIDE 0.9% 1,000 ML IV ONE (14:00)
[2018-08-10] MEDS ORDERED: MAGNESIUM 2 G PREMIX 50 ML IV ONE (14:00)
[2018-08-10 15:02] LABS: BASOPHILS % 0.6 % (0.0-2.0); EOSINOPHILS % 0.9 % (0.0-5.0); HEMATOCRIT. 38.8 % (36.0-48.0); HEMOGLOBIN. 12.5 g/dL (12.0-16.0); LYMPHOCYTES % 20.5 % (20.0-50.0); MEAN CORPUSCULAR VOLUME 86.9 fL (81.0-99.0); MEAN PLATELET VOLUME 10.9 fl (7.4-10.4); MONOCYTES % 11.3 % (2.0-8.0); NEUTROPHILS % 66.7 % (40.0-76.0); PLATELET 196 x1000/uL (130-400); RED BLOOD CELL COUNT 4.46 mill/uL (4.2-5.4); RED CELL DISTRIBUTION WIDTH 16.2 % (11.6-14.6)
[2018-08-10 15:09] LABS: CHLORIDE 109 mEq/L (98-107); HCG SCREEN NEGATIVE
[2018-08-10] MEDS ORDERED: IPRATROPIUM/ALBUTEROL 0.5-3(2.5)MG/3ML NEB HHN PRN (20:00)
[2018-08-10] MEDS ORDERED: IPRATROPIUM/ALBUTEROL 0.5-3(2.5)MG/3ML NEB INH SCH (20:45)
[2018-08-10] MEDS ORDERED: MAGNESIUM/ALUMINUM HYDROXIDE/SIMETHICONE 30ML UDC PO PRN (20:45)
[2018-08-10] MEDS ORDERED: ACETAMINOPHEN 325MG TABLET PO PRN (20:45)
[2018-08-10] MEDS ORDERED: ONDANSETRON HCL 4MG/2ML INJ IV PRN (20:45)
[2018-08-10] MEDS ORDERED: DOCUSATE SODIUM 100MG CAPSULE PO PRN (20:45)
[2018-08-10] MEDS ORDERED: NA PHOS,M-B/NA PHOS,DI-BA ENEMA 118ML PR PRN (20:45)
[2018-08-10] MEDS: HYDROCODONE/ACETAMINOPHEN 5/325MG TABLET PO PRN (22:40)
[2018-08-11] VITALS (7 sets, daily range): BP systolic 113–170; BP diastolic 52–93
[2018-08-11] MEDS: METHYLPREDNISOLONE SOD SUCC 125 MG/2 ML VIAL IV SCH ×5 (00:18→23:30)
[2018-08-11] MEDS: GUAIFENESIN 200MG/10ML SUGAR FREE UDC PO PRN ×3 (01:05→13:47)
[2018-08-11] MEDS ORDERED: LEVOFLOXACIN 500MG PREMIX 100 ML IV SCH (02:00)
[2018-08-11] MEDS: IPRATROPIUM/ALBUTEROL 0.5-3(2.5)MG/3ML NEB INH PRN (03:36)
[2018-08-11] MEDS ORDERED: IPRATROPIUM/ALBUTEROL 0.5-3(2.5)MG/3ML NEB INH SCH (06:00)
[2018-08-11 07:41] LABS: CHLORIDE 111 mEq/L (98-107)
[2018-08-11] MEDS: AMLODIPINE 10MG TABLET PO SCH (08:07)
[2018-08-11] MEDS: HYDROMORPHONE HCL/PF 2MG/ML CPJ IV PRN ×3 (08:08→23:41)
[2018-08-11 08:25] LABS: BASOPHILS % 0.1 % (0.0-2.0); HEMATOCRIT. 37.3 % (36.0-48.0); HEMOGLOBIN. 11.9 g/dL (12.0-16.0); LYMPHOCYTES % 10.2 % (20.0-50.0); MEAN CORPUSCULAR HEMOGLOBIN 28.2 pg (28.0-32.0); MONOCYTES % 2.3 % (2.0-8.0); NEUTROPHILS % 87.4 % (40.0-76.0); PLATELET 185 x1000/uL (130-400); RED BLOOD CELL COUNT 4.24 mill/uL (4.2-5.4); RED CELL DISTRIBUTION WIDTH 16.4 % (11.6-14.6)
[2018-08-11] MEDS: IPRATROPIUM/ALBUTEROL 0.5-3(2.5)MG/3ML NEB INH SCH ×3 (11:40→19:44)
[2018-08-11] MEDS: NICOTINE 21MG PATCH TD SCH (13:46)
[2018-08-12] VITALS: BP 169/89
[2018-08-12] MEDS: IPRATROPIUM/ALBUTEROL 0.5-3(2.5)MG/3ML NEB INH SCH ×6 (00:07→22:01)
[2018-08-12] MEDS: LEVOFLOXACIN 500MG PREMIX 100 ML IV SCH (02:58)
[2018-08-12 04:00] VITALS: BP 169/98
[2018-08-12] MEDS: CLONIDINE 0.1MG TABLET PO PRN (04:18)
[2018-08-12] MEDS: GUAIFENESIN 200MG/10ML SUGAR FREE UDC PO PRN ×3 (04:24→22:04)
[2018-08-12] MEDS: METHYLPREDNISOLONE SOD SUCC 125 MG/2 ML VIAL IV SCH ×3 (05:09→23:47)
[2018-08-12 08:00] VITALS: BP 118/67
[2018-08-12] MEDS: NICOTINE 21MG PATCH TD SCH (08:33)
[2018-08-12] MEDS: AMLODIPINE 10MG TABLET PO SCH (08:33)
[2018-08-12] MEDS: HYDROMORPHONE HCL/PF 2MG/ML CPJ IV PRN ×3 (08:44→22:05)
[2018-08-12 12:00] VITALS: BP 144/85
[2018-08-12] MEDS: BUDESONIDE 0.5MG/2ML NEB HHN SCH ×2 (12:46→22:00)
[2018-08-12] MEDS ORDERED: LIDOCAINE HCL/PF 1% 2ML VIAL ONE (13:22)
[2018-08-12 14:58] LABS: BG BASE EXCESS -0.8 mmol/L (-2.0-2.0); BG CARBOXYHEMOGLOBIN 0.3 % (0.5-1.5); BG DEOXYHEMOGLOBIN 4.2 % (0.0-5.0); BG FRACTION INSPIRED OXYGEN 21; BG HCO3 ACT 24.5 mmol/L (22.0-26.0); BG METHEMOGLOBIN 0.2 % (0.0-1.5); BG OXYGEN SATURATION 95.8 % (92.0-98.5); BG OXYHEMOGLOBIN 95.3 % (94.0-97.0); BG PCO2 42.9 mmHg (35.0-45.0); BG PH 7.374 (7.350-7.450); BG PO2 81.4 mmHg (75.0-100.0); BG SAMPLE SITE RIGHT RADIAL; BG TOTAL HEMOGLOBIN 13.2 g/dL (12.0-18.0); BG VENT MODE ROOM AIR
[2018-08-12] MEDS ORDERED: IPRATROPIUM/ALBUTEROL 0.5-3(2.5)MG/3ML NEB HHN PRN (15:00)
[2018-08-12 16:00] VITALS: BP 128/65
[2018-08-12 20:00] VITALS: BP 135/71
[2018-08-12] MEDS: MONTELUKAST SODIUM 10MG TABLET PO SCH (21:52)
[2018-08-12] MEDS: FAMOTIDINE 20MG/2ML VIAL IV SCH (21:53)
[2018-08-13] VITALS: BP 101/58
[2018-08-13] MEDS: METHYLPREDNISOLONE SOD SUCC 125 MG/2 ML VIAL IV SCH ×4 (00:25→17:51)
[2018-08-13] MEDS: IPRATROPIUM/ALBUTEROL 0.5-3(2.5)MG/3ML NEB INH SCH ×6 (01:40→20:54)
[2018-08-13] MEDS: LEVOFLOXACIN 500MG PREMIX 100 ML IV SCH (03:32)
[2018-08-13 04:00] VITALS: BP 107/76
[2018-08-13 08:00] VITALS: BP 123/78
[2018-08-13] MEDS: GUAIFENESIN 200MG/10ML SUGAR FREE UDC PO PRN (08:43)
[2018-08-13] MEDS: FAMOTIDINE 20MG/2ML VIAL IV SCH ×2 (08:55→20:26)
[2018-08-13] MEDS: AMLODIPINE 10MG TABLET PO SCH (08:55)
[2018-08-13] MEDS: HYDROMORPHONE HCL/PF 2MG/ML CPJ IV PRN ×2 (08:56→12:24)
[2018-08-13] MEDS: NICOTINE 21MG PATCH TD SCH (08:56)
[2018-08-13] MEDS: LORATADINE 10MG TABLET PO SCH ×2 (09:00→17:51)
[2018-08-13] MEDS: BUDESONIDE 0.5MG/2ML NEB HHN SCH ×2 (09:25→20:49)
[2018-08-13] MEDS: CLONIDINE 0.1MG TABLET PO PRN (11:36)
[2018-08-13 11:46] VITALS: BP 161/98
[2018-08-13] MEDS ORDERED: CLONIDINE 0.1MG TABLET PO SCH (13:30)
[2018-08-13] MEDS ORDERED: CLONIDINE 0.2MG TABLET PO PRN ×2 (13:30→14:00)
[2018-08-13] MEDS: CLONIDINE 0.1MG TABLET PO SCH ×2 (14:00→21:05)
[2018-08-13] MEDS ORDERED: LORAZEPAM 0.5MG TABLET PO PRN (14:00)
[2018-08-13 16:00] VITALS: BP 156/85
[2018-08-13] MEDS ORDERED: TERBUTALINE SULFATE 1MG/ML VIAL SUBCUT NR (17:30)
[2018-08-13 20:00] VITALS: BP 142/78
[2018-08-13] MEDS: MONTELUKAST SODIUM 10MG TABLET PO SCH (20:26)
[2018-08-13] MEDS: HYDROCODONE/ACETAMINOPHEN 5/325MG TABLET PO PRN (20:26)
[2018-08-13] MEDS: THEOPHYLLINE ANHYDROUS 80 MG/15 ML 120ML PO SCH (21:05)
[2018-08-14] VITALS (9 sets, daily range): BP systolic 108–151; BP diastolic 48–85
[2018-08-14] MEDS: IPRATROPIUM/ALBUTEROL 0.5-3(2.5)MG/3ML NEB INH SCH ×7 (00:49→23:54)
[2018-08-14] MEDS: HYDROMORPHONE HCL/PF 2MG/ML CPJ IV PRN ×5 (01:34→22:07)
[2018-08-14] MEDS: LEVOFLOXACIN 500MG PREMIX 100 ML IV SCH (02:14)
[2018-08-14] MEDS: METHYLPREDNISOLONE SOD SUCC 125 MG/2 ML VIAL IV SCH ×4 (06:37→18:35)
[2018-08-14] MEDS: CLONIDINE 0.1MG TABLET PO SCH ×2 (06:37→14:25)
[2018-08-14] MEDS: THEOPHYLLINE ANHYDROUS 80 MG/15 ML 120ML PO SCH ×3 (06:38→23:48)
[2018-08-14] MEDS: BUDESONIDE 0.5MG/2ML NEB HHN SCH ×2 (07:33→19:58)
[2018-08-14] MEDS: LORATADINE 10MG TABLET PO SCH (10:04)
[2018-08-14] MEDS: FAMOTIDINE 20MG/2ML VIAL IV SCH ×2 (10:05→22:06)
[2018-08-14] MEDS: NICOTINE 21MG PATCH TD SCH (10:05)
[2018-08-14] MEDS: AMLODIPINE 10MG TABLET PO SCH (11:21)
[2018-08-14] MEDS ORDERED: TERBUTALINE SULFATE 1MG/ML VIAL SUBCUT NR (16:30)
[2018-08-14] MEDS: MONTELUKAST SODIUM 10MG TABLET PO SCH (22:06)
[2018-08-14] MEDS: ACETYLCYSTEINE 100MG/ML 10% VIAL 4ML INH SCH (23:55)
[2018-08-15] VITALS: BP 167/76
[2018-08-15] MEDS: METHYLPREDNISOLONE SOD SUCC 125 MG/2 ML VIAL IV SCH ×2 (00:30→12:29)
[2018-08-15] MEDS: CLONIDINE 0.1MG TABLET PO SCH ×2 (00:30→06:05)
[2018-08-15] MEDS: HYDROMORPHONE HCL/PF 2MG/ML CPJ IV PRN ×4 (01:06→12:29)
[2018-08-15] MEDS: LEVOFLOXACIN 500MG PREMIX 100 ML IV SCH (03:25)
[2018-08-15 04:00] VITALS: BP 136/85
[2018-08-15] MEDS: IPRATROPIUM/ALBUTEROL 0.5-3(2.5)MG/3ML NEB INH SCH ×3 (04:16→11:54)
[2018-08-15] MEDS: THEOPHYLLINE ANHYDROUS 80 MG/15 ML 120ML PO SCH (06:05)
[2018-08-15] MEDS: BUDESONIDE 0.5MG/2ML NEB HHN SCH (07:52)
[2018-08-15] MEDS: ACETYLCYSTEINE 100MG/ML 10% VIAL 4ML INH SCH (07:52)
[2018-08-15 08:00] VITALS: BP 115/73
[2018-08-15] MEDS: NICOTINE 21MG PATCH TD SCH ×2 (09:00→09:01)
[2018-08-15] MEDS: AMLODIPINE 10MG TABLET PO SCH (09:01)
[2018-08-15] MEDS: LORATADINE 10MG TABLET PO SCH (09:01)
[2018-08-15] MEDS: FAMOTIDINE 20MG/2ML VIAL IV SCH (09:01)
[2018-08-15 12:00] VITALS: BP 117/79
[2018-08-15 12:46] VITALS: BP 128/66
[2018-08-16] MEDS ORDERED: LEVOFLOXACIN 500MG TABLET PO SCH (11:00)
== END 2018-08-15 13:13 | disposition home or self-care (01) | DRG 140 ==
LOC: ER 14:06 → 6EST 16:05 → EDBEDREQ 16:11 → SUPCPDRO 20:31 → ENRESERV 23:51
PROVIDERS: ADMIT Hospitalist; ATTEND Hospitalist
DX: J44.1 Chronic obstructive pulmonary disease with (acute) exacerbation (principal); J96.00 Acute respiratory failure, unspecified whether with hypoxia or hypercapnia; R65.11 Systemic inflammatory response syndrome (SIRS) of non-infectious origin with acute organ dysfunction; J45.901 Unspecified asthma with (acute) exacerbation; Z68.41 Body mass index [BMI] 40.0-44.9, adult; E87.8 Other disorders of electrolyte and fluid balance, not elsewhere classified; F17.210 Nicotine dependence, cigarettes, uncomplicated; I10 Essential (primary) hypertension; Z92.21 Personal history of antineoplastic chemotherapy; Z85.3 Personal history of malignant neoplasm of breast; Z92.3 Personal history of irradiation; Z82.49 Family history of ischemic heart disease and other diseases of the circulatory system; Z71.6 Tobacco abuse counseling; E66.9 Obesity, unspecified
CPT/HCPCS: 36415; 36600; 71045; 82375; 82805; 83735; 84703; 87804; 94640; 96365; 96366; 96375; 99285; C1893; J1170; J1956; J2930; J3105; J3475; J3490; J7030; J7040; J7608; J7611; J7620; J7626

== ENCOUNTER 2018-10-17 22:07 | Emergency (ER) | payer MEDICAID ==
[~2018-10-17] VITALS: Ht 177.8 cm; Wt 123.0 kg
[~2018-10-17 22:07] MED LIST changes: -LOSA50TA20 PO; +LOSA50TA41 PO
[2018-10-18 00:42] LABS: BASOPHILS % 1.3 % (0.0-2.0); EOSINOPHILS % 4.7 % (0.0-5.0); HEMATOCRIT. 37.5 % (36.0-48.0); HEMOGLOBIN. 12.4 g/dL (12.0-16.0); LYMPHOCYTES % 39.3 % (20.0-50.0); MEAN CORPUSCULAR HEMOGLOBIN 29.1 pg (28.0-32.0); MEAN PLATELET VOLUME 9.6 fl (7.4-10.4); NEUTROPHILS % 44.7 % (40.0-76.0); PLATELET 217 x1000/uL (130-400); RED BLOOD CELL COUNT 4.27 mill/uL (4.2-5.4); RED CELL DISTRIBUTION WIDTH 17.9 % (11.6-14.6)
[2018-10-18 00:49] LABS: CHLORIDE 110 mEq/L (98-107)
[2018-10-18 04:00] VITALS: BP 134/64
== END 2018-10-18 04:55 | disposition home or self-care (01) ==
LOC: ER 22:07
DX: R60.0 Localized edema (principal); J45.909 Unspecified asthma, uncomplicated; J44.9 Chronic obstructive pulmonary disease, unspecified; Z79.899 Other long term (current) drug therapy
CPT/HCPCS: 36415; 81025; 83880; 93970; 99284

== ENCOUNTER 2019-01-22 22:42 | Inpatient (IN) | payer MEDICAID ==
[~2019-01-22] VITALS: Ht 177.8 cm; Wt 122.5 kg
[2019-01-23] MEDS ORDERED: METHYLPREDNISOLONE SOD SUCC 125 MG/2 ML VIAL IV STA (00:41)
[2019-01-23] MEDS ORDERED: MAGNESIUM 2 G PREMIX 50 ML IV STA (00:41)
[2019-01-23] MEDS ORDERED: SODIUM CHLORIDE 0.9% 1,000 ML IV ONE (00:41)
[2019-01-23] MEDS ORDERED: ALBUTEROL (0.083%) 2.5MG/3ML NEB HHN STA ×2 (00:41→02:18)
[2019-01-23] MEDS ORDERED: IPRATROPIUM BROMIDE (0.02%) 0.5MG/2.5ML NEB HHN STA ×2 (00:41→02:18)
[2019-01-23 01:16] LABS: CHLORIDE 112 mEq/L (98-107)
[2019-01-23 01:21] LABS: BASOPHILS % 1.3 % (0.0-2.0); EOSINOPHILS % 4.1 % (0.0-5.0); HEMATOCRIT. 35.5 % (36.0-48.0); HEMOGLOBIN. 11.6 g/dL (12.0-16.0); MEAN CORPUSCULAR HEMOGLOBIN 28.9 pg (28.0-32.0); MEAN CORPUSCULAR VOLUME 88.2 fL (81.0-99.0); MONOCYTES % 10.7 % (2.0-8.0); NEUTROPHILS % 45.9 % (40.0-76.0); PLATELET 170 x1000/uL (130-400); RED BLOOD CELL COUNT 4.02 mill/uL (4.2-5.4); RED CELL DISTRIBUTION WIDTH 15.9 % (11.6-14.6)
[2019-01-23 03:52] LABS: CLARITY URINE CLEAR (CLEAR); COLOR URINE YELLOW (YELLOW); KETONES URINE NEGATIVE (NEGATIVE); LEUKOCYTE ESTERASE URINE NEGATIVE (NEGATIVE); NITRITE URINE NEGATIVE (NEGATIVE); OCCULT BLOOD URINE 2+ (NEGATIVE); PROTEIN URINE NEGATIVE (NEGATIVE); SPECIFIC GRAVITY URINE 1.011 (1.005-1.030); UROBILINOGEN URINE 0.2 E.U./dL (0.2-1.0)
[2019-01-23 05:31] VITALS: BP 131/54
[2019-01-23 05:49] VITALS: BP 131/54
[2019-01-23] MEDS ORDERED: IPRATROPIUM/ALBUTEROL 0.5-3(2.5)MG/3ML NEB NEB PRN (06:00)
[2019-01-23] MEDS ORDERED: DOCUSATE SODIUM 100MG CAPSULE PO PRN (06:00)
[2019-01-23] MEDS ORDERED: CLONIDINE 0.1MG TABLET PO PRN (06:00)
[2019-01-23] MEDS ORDERED: HYDROCODONE/ACETAMINOPHEN 5/325MG TABLET PO PRN (06:00)
[2019-01-23] MEDS ORDERED: ONDANSETRON HCL 4MG/2ML INJ IV PRN (06:00)
[2019-01-23 08:00] VITALS: BP 116/63
[2019-01-23] MEDS: ASPIRIN 81MG EC TABLET PO SCH (09:04)
[2019-01-23] MEDS: ENOXAPARIN 30MG/0.3ML SYR SUBCUT SCH ×2 (09:04→21:13)
[2019-01-23] MEDS: LEVOFLOXACIN 500MG PREMIX 100 ML IV SCH (09:05)
[2019-01-23] MEDS: METHYLPREDNISOLONE SOD SUCC 125 MG/2 ML VIAL IV SCH ×3 (09:05→21:12)
[2019-01-23] MEDS: NICOTINE 21MG PATCH TD SCH (09:13)
[2019-01-23 12:00] VITALS: BP 136/73
[2019-01-23 16:00] VITALS: BP 128/79
[2019-01-23] MEDS: IPRATROPIUM/ALBUTEROL 0.5-3(2.5)MG/3ML NEB NEB SCH ×2 (16:53→21:50)
[2019-01-23 20:00] VITALS: BP 134/78
[2019-01-24] VITALS: BP 120/66
[2019-01-24] MEDS: IPRATROPIUM/ALBUTEROL 0.5-3(2.5)MG/3ML NEB NEB SCH ×4 (01:30→21:14)
[2019-01-24] MEDS: METHYLPREDNISOLONE SOD SUCC 125 MG/2 ML VIAL IV SCH ×4 (03:04→20:35)
[2019-01-24 04:00] VITALS: BP 147/79
[2019-01-24 07:57] VITALS: BP 152/59
[2019-01-24 07:57] LABS: BASOPHILS % 0.2 % (0.0-2.0); HEMATOCRIT. 35.7 % (36.0-48.0); HEMOGLOBIN. 11.6 g/dL (12.0-16.0); MEAN CORPUSCULAR HEMOGLOBIN 28.7 pg (28.0-32.0); MEAN CORPUSCULAR VOLUME 88.5 fL (81.0-99.0); MEAN PLATELET VOLUME 11.2 fl (7.4-10.4); MONOCYTES % 2.8 % (2.0-8.0); PLATELET 171 x1000/uL (130-400); RED BLOOD CELL COUNT 4.04 mill/uL (4.2-5.4); RED CELL DISTRIBUTION WIDTH 15.9 % (11.6-14.6)
[2019-01-24 08:51] LABS: CHLORIDE 113 mEq/L (98-107)
[2019-01-24] MEDS: NICOTINE 21MG PATCH TD SCH (09:04)
[2019-01-24] MEDS: GUAIFENESIN 200MG/10ML SUGAR FREE UDC PO PRN (09:04)
[2019-01-24] MEDS: ASPIRIN 81MG EC TABLET PO SCH (09:05)
[2019-01-24] MEDS: ENOXAPARIN 30MG/0.3ML SYR SUBCUT SCH ×2 (09:05→20:35)
[2019-01-24] MEDS: LEVOFLOXACIN 500MG PREMIX 100 ML IV SCH (09:06)
[2019-01-24 10:50] LABS: BG BASE EXCESS -3.4 mmol/L (-2.0-2.0); BG CARBOXYHEMOGLOBIN 0.3 % (0.5-1.5); BG FRACTION INSPIRED OXYGEN 21; BG HCO3 ACT 19.9 mmol/L (22.0-26.0); BG METHEMOGLOBIN 0.3 % (0.0-1.5); BG OXYHEMOGLOBIN 98.4 % (94.0-97.0); BG PCO2 30.6 mmHg (35.0-45.0); BG PH 7.431 (7.350-7.450); BG PO2 189.8 mmHg (75.0-100.0); BG SAMPLE SITE RIGHT RADIAL; BG TOTAL HEMOGLOBIN 12.5 g/dL (12.0-18.0); BG VENT MODE ROOM AIR
[2019-01-24 12:56] VITALS: BP 148/107
[2019-01-24 16:32] VITALS: BP 167/76
[2019-01-24] MEDS ORDERED: MONTELUKAST SODIUM 10MG TABLET PO SCH (17:00)
[2019-01-24 20:00] VITALS: BP 147/72
[2019-01-24] MEDS ORDERED: FLUTICASONE PROPIONATE 50MCG/SPRAY BOTTLE BOTHNSTRLS SCH (21:00)
[2019-01-25] VITALS: BP_SYST 105; BP_SYST 155; BP_DIAS 96
[2019-01-25] MEDS: GUAIFENESIN 200MG/10ML SUGAR FREE UDC PO PRN (01:25)
[2019-01-25] MEDS: METHYLPREDNISOLONE SOD SUCC 125 MG/2 ML VIAL IV SCH (03:44)
[2019-01-25] MEDS: IPRATROPIUM/ALBUTEROL 0.5-3(2.5)MG/3ML NEB NEB SCH ×2 (03:59→08:45)
[2019-01-25 04:00] VITALS: BP 152/68
[2019-01-25 08:00] VITALS: BP 166/87
[2019-01-25 09:38] VITALS: BP 156/87
[2019-01-25] MEDS ORDERED: ATORVASTATIN CALCIUM 20MG TABLET PO SCH (21:00)
== END 2019-01-25 10:04 | disposition home or self-care (01) | DRG 140 ==
LOC: ER 22:42 → 7WST 01-23 02:50 → EDBEDREQTM 01-23 02:53 → EDBEDREQ 01-23 02:53 → ENRESERV 01-23 04:36
PROVIDERS: ADMIT Hospitalist; ATTEND Hospitalist
DX: J44.1 Chronic obstructive pulmonary disease with (acute) exacerbation (principal); J96.00 Acute respiratory failure, unspecified whether with hypoxia or hypercapnia; J45.901 Unspecified asthma with (acute) exacerbation; I11.9 Hypertensive heart disease without heart failure; D72.829 Elevated white blood cell count, unspecified; E78.5 Hyperlipidemia, unspecified; F17.210 Nicotine dependence, cigarettes, uncomplicated; T38.0X5A Adverse effect of glucocorticoids and synthetic analogues, initial encounter; Y92.89 Other specified places as the place of occurrence of the external cause; Z85.3 Personal history of malignant neoplasm of breast; Z92.21 Personal history of antineoplastic chemotherapy; Z92.3 Personal history of irradiation; Z79.899 Other long term (current) drug therapy; Z68.38 Body mass index [BMI] 38.0-38.9, adult
CPT/HCPCS: 36415; 36600; 71045; 81003; 82375; 82805; 83605; 83880; 93005; 93970; 94640; 99291; J1650; J1956; J2930; J3475; J7030; J7040; J7611; J7620

== ENCOUNTER 2019-05-05 18:21 | Inpatient (IN) | payer MEDICAID ==
[~2019-05-05] VITALS: Ht 177.8 cm; Wt 98.0 kg
[2019-05-05] MEDS ORDERED: ALBUTEROL (0.083%) 2.5MG/3ML NEB HHN STA (20:28)
[2019-05-05] MEDS ORDERED: METHYLPREDNISOLONE SOD SUCC 125 MG/2 ML VIAL IV STA (20:28)
[2019-05-05] MEDS ORDERED: IPRATROPIUM BROMIDE (0.02%) 0.5MG/2.5ML NEB HHN STA (20:28)
[2019-05-05] MEDS ORDERED: MAGNESIUM 2 G PREMIX 50 ML IV ONE (20:30)
[2019-05-05] MEDS ORDERED: AZITHROMYCIN 500 MG in DEXT 5% WATER 250 ML IV STA (21:50)
[2019-05-05 21:56] LABS: BASOPHILS % 0.8 % (0.0-2.0); EOSINOPHILS % 2.3 % (0.0-5.0); HEMOGLOBIN. 13.8 g/dL (12.0-16.0); LYMPHOCYTES % 20.5 % (20.0-50.0); MEAN CORPUSCULAR HEMOGLOBIN 28.8 pg (28.0-32.0); MEAN CORPUSCULAR VOLUME 87.6 fL (81.0-99.0); MEAN PLATELET VOLUME 11.6 fl (7.4-10.4); MONOCYTES % 9.8 % (2.0-8.0); NEUTROPHILS % 66.6 % (40.0-76.0); PLATELET 180 x1000/uL (130-400); RED BLOOD CELL COUNT 4.79 mill/uL (4.2-5.4); RED CELL DISTRIBUTION WIDTH 16.4 % (11.6-14.6)
[2019-05-05] MEDS ORDERED: DOXYCYCLINE HYCLATE 100MG CAPSULE PO ONE (22:00)
[2019-05-05] MEDS ORDERED: AMLODIPINE 10MG TABLET PO ONE (22:00)
[2019-05-05] MEDS ORDERED: CEFTRIAXONE 1 G PREMIX 50 ML IV ONE (22:00)
[2019-05-05] MEDS ORDERED: LOSARTAN POTASSIUM 50 MG TABLET PO ONE (22:00)
[2019-05-05] MEDS ORDERED: IBUPROFEN 600MG TABLET PO ONE (22:00)
[2019-05-05 22:03] LABS: CHLORIDE 107 mEq/L (98-107)
[2019-05-05] MEDS ORDERED: BENZONATATE 100MG CAPSULE PO PRN (22:30)
[2019-05-05] MEDS ORDERED: ACETAMINOPHEN 325MG TABLET PO PRN (22:30)
[2019-05-05] MEDS ORDERED: IPRATROPIUM/ALBUTEROL 0.5-3(2.5)MG/3ML NEB HHN PRN (22:30)
[2019-05-05] MEDS ORDERED: ONDANSETRON HCL 4MG/2ML INJ IV PRN (22:30)
[2019-05-05] MEDS: KETOROLAC 30MG/ML VIAL IV PRN (23:10)
[2019-05-06] MEDS ORDERED: LEVOFLOXACIN 750MG PREMIX 150 ML IV SCH (02:00)
[2019-05-06] MEDS: IPRATROPIUM/ALBUTEROL 0.5-3(2.5)MG/3ML NEB HHN SCH ×4 (08:15→19:59)
[2019-05-06] MEDS ORDERED: METHYLPREDNISOLONE SOD SUCC 40 MG/ML VIAL IV NR (09:00)
[2019-05-06] MEDS ORDERED: FUROSEMIDE 40MG/4ML VIAL IVP NR (09:30)
[2019-05-06] MEDS: AMLODIPINE 5MG TABLET PO SCH ×2 (09:48→21:00)
[2019-05-06] MEDS: KETOROLAC 30MG/ML VIAL IV PRN ×2 (09:49→17:38)
[2019-05-06] MEDS ORDERED: BUDESONIDE 0.5MG/2ML NEB HHN SCH (10:15)
[2019-05-06 16:00] VITALS: BP 155/83
[2019-05-06 16:15] VITALS: BP 155/83
[2019-05-06] MEDS ORDERED: METHYLPREDNISOLONE SOD SUCC 40 MG/ML VIAL IV SCH (17:00)
[2019-05-06] MEDS: ENOXAPARIN 40MG/0.4ML SYR SUBCUT SCH (17:20)
[2019-05-06] MEDS: MONTELUKAST SODIUM 10MG TABLET PO SCH (17:21)
[2019-05-06] MEDS: METHYLPREDNISOLONE SOD SUCC 125 MG/2 ML VIAL IV SCH (17:21)
[2019-05-06 20:00] VITALS: BP_SYST 128; BP_SYST 138; BP_DIAS 45; BP_DIAS 48; BP_DIAS 75
[2019-05-06] MEDS: FLUTICASONE PROPIONATE 50MCG/SPRAY BOTTLE BOTHNSTRLS SCH (21:00)
[2019-05-06 22:00] VITALS: BP 138/78
[2019-05-06] MEDS: FAMOTIDINE 20MG/2ML VIAL IV SCH (22:51)
[2019-05-06] MEDS: LORATADINE 10MG TABLET PO SCH (22:52)
[2019-05-07] MEDS: IPRATROPIUM/ALBUTEROL 0.5-3(2.5)MG/3ML NEB HHN SCH ×6 (00:16→21:16)
[2019-05-07] MEDS: KETOROLAC 30MG/ML VIAL IV PRN ×2 (01:06→08:31)
[2019-05-07] MEDS: METHYLPREDNISOLONE SOD SUCC 125 MG/2 ML VIAL IV SCH ×3 (03:12→16:33)
[2019-05-07] MEDS: LEVOFLOXACIN 750MG PREMIX 150 ML IV SCH (03:13)
[2019-05-07 04:00] VITALS: BP 108/50
[2019-05-07 07:01] LABS: BASOPHILS % 0.3 % (0.0-2.0); HEMATOCRIT. 35.2 % (36.0-48.0); HEMOGLOBIN. 11.3 g/dL (12.0-16.0); LYMPHOCYTES % 13.3 % (20.0-50.0); MEAN CORPUSCULAR VOLUME 87.5 fL (81.0-99.0); MEAN PLATELET VOLUME 11.1 fl (7.4-10.4); NEUTROPHILS % 76.4 % (40.0-76.0); PLATELET 169 x1000/uL (130-400); RED BLOOD CELL COUNT 4.03 mill/uL (4.2-5.4); RED CELL DISTRIBUTION WIDTH 16.6 % (11.6-14.6)
[2019-05-07] MEDS: FLUTICASONE PROPIONATE 50MCG/SPRAY BOTTLE BOTHNSTRLS SCH ×3 (07:02→21:35)
[2019-05-07 07:17] LABS: CHLORIDE 110 mEq/L (98-107)
[2019-05-07 08:00] VITALS: BP 150/75
[2019-05-07] MEDS: FAMOTIDINE 20MG/2ML VIAL IV SCH ×2 (08:31→21:35)
[2019-05-07] MEDS: AMLODIPINE 5MG TABLET PO SCH ×2 (08:31→21:36)
[2019-05-07] MEDS: FUROSEMIDE 40MG/4ML VIAL IVP SCH (08:35)
[2019-05-07] MEDS ORDERED: BUDESONIDE 0.5MG/2ML NEB HHN SCH (10:45)
[2019-05-07 12:00] VITALS: BP 160/82
[2019-05-07] MEDS: ACETAMINOPHEN WITH CODEINE 300/30MG TABLET PO PRN (15:25)
[2019-05-07 16:00] VITALS: BP 146/77
[2019-05-07] MEDS: MONTELUKAST SODIUM 10MG TABLET PO SCH (16:32)
[2019-05-07] MEDS: BENZONATATE 100MG CAPSULE PO SCH ×2 (16:32→21:35)
[2019-05-07] MEDS: ENOXAPARIN 40MG/0.4ML SYR SUBCUT SCH (18:00)
[2019-05-07 20:00] VITALS: BP 161/73
[2019-05-07] MEDS: LORATADINE 10MG TABLET PO SCH (21:35)
[2019-05-08] VITALS: BP 128/54
[2019-05-08] MEDS: IPRATROPIUM/ALBUTEROL 0.5-3(2.5)MG/3ML NEB HHN SCH ×6 (00:55→21:44)
[2019-05-08] MEDS: LEVOFLOXACIN 750MG PREMIX 150 ML IV SCH (01:28)
[2019-05-08] MEDS: METHYLPREDNISOLONE SOD SUCC 125 MG/2 ML VIAL IV SCH ×4 (01:29→18:24)
[2019-05-08] MEDS: ACETAMINOPHEN WITH CODEINE 300/30MG TABLET PO PRN ×2 (01:45→09:15)
[2019-05-08 04:00] VITALS: BP 121/66
[2019-05-08] MEDS: BENZONATATE 100MG CAPSULE PO SCH ×3 (07:01→20:48)
[2019-05-08 08:06] VITALS: BP 134/77
[2019-05-08] MEDS ORDERED: LIDOCAINE HCL/PF 1% 2ML VIAL ONE (08:32)
[2019-05-08] MEDS: FLUTICASONE PROPIONATE 50MCG/SPRAY BOTTLE BOTHNSTRLS SCH ×2 (09:03→20:53)
[2019-05-08] MEDS: FUROSEMIDE 40MG/4ML VIAL IVP SCH ×2 (09:04→14:53)
[2019-05-08] MEDS: FAMOTIDINE 20MG/2ML VIAL IV SCH ×2 (09:04→20:48)
[2019-05-08] MEDS: AMLODIPINE 5MG TABLET PO SCH ×2 (09:05→20:48)
[2019-05-08] MEDS ORDERED: TERBUTALINE SULFATE 1MG/ML VIAL SUBCUT NR (10:45)
[2019-05-08] MEDS ORDERED: METHYLPREDNISOLONE SOD SUCC 125 MG/2 ML VIAL IV ONE (10:45)
[2019-05-08] MEDS ORDERED: METHYLPREDNISOLONE SOD SUCC 125 MG/2 ML VIAL IV NR (11:00)
[2019-05-08 11:11] LABS: BG BASE EXCESS -2.1 mmol/L (-2.0-2.0); BG CARBOXYHEMOGLOBIN 0.3 % (0.5-1.5); BG DEOXYHEMOGLOBIN 6.8 % (0.0-5.0); BG FRACTION INSPIRED OXYGEN 21; BG HCO3 ACT 21.6 mmol/L (22.0-26.0); BG METHEMOGLOBIN 0.3 % (0.0-1.5); BG OXYGEN SATURATION 93.2 % (92.0-98.5); BG OXYHEMOGLOBIN 92.6 % (94.0-97.0); BG PCO2 33.6 mmHg (35.0-45.0); BG PH 7.425 (7.350-7.450); BG PO2 65.8 mmHg (75.0-100.0); BG SAMPLE SITE RIGHT RADIAL; BG TOTAL HEMOGLOBIN 13.2 g/dL (12.0-18.0); BG VENT MODE ROOM AIR
[2019-05-08 11:38] VITALS: BP 156/74
[2019-05-08] MEDS: KETOROLAC 30MG/ML VIAL IV PRN ×2 (12:42→19:06)
[2019-05-08] MEDS ORDERED: DIPHENHYDRAMINE 50MG/ML VIAL IV PRN (14:00)
[2019-05-08] MEDS ORDERED: FUROSEMIDE 20MG/2ML VIAL IVP NR (14:11)
[2019-05-08] MEDS ORDERED: LORAZEPAM 2MG/ML CPJ IV PRN (14:15)
[2019-05-08] MEDS: GUAIFENESIN 600MG ER TABLET PO SCH ×2 (14:53→20:48)
[2019-05-08] MEDS ORDERED: THEOPHYLLINE ANHYDROUS 80 MG/15 ML 120ML PO SCH (15:00)
[2019-05-08] MEDS ORDERED: THEOPHYLLINE ANHYDROUS 80 MG/15 ML 120ML PO NR (15:00)
[2019-05-08 15:31] VITALS: BP 113/48
[2019-05-08] MEDS: CEFTRIAXONE 1 G PREMIX 50 ML IV SCH (16:04)
[2019-05-08] MEDS: ACETYLCYSTEINE 100MG/ML 10% VIAL 4ML INH SCH (16:31)
[2019-05-08] MEDS: AZITHROMYCIN 500 MG in DEXT 5% WATER 250 ML IV SCH (16:32)
[2019-05-08] MEDS ORDERED: METHYLPREDNISOLONE SOD SUCC 125 MG/2 ML VIAL IV SCH (18:00)
[2019-05-08] MEDS: MONTELUKAST SODIUM 10MG TABLET PO SCH (18:24)
[2019-05-08] MEDS: ENOXAPARIN 40MG/0.4ML SYR SUBCUT SCH (18:25)
[2019-05-08 20:30] VITALS: BP 127/70
[2019-05-08] MEDS: LORATADINE 10MG TABLET PO SCH (20:48)
[2019-05-09] MEDS: METHYLPREDNISOLONE SOD SUCC 125 MG/2 ML VIAL IV SCH ×4 (00:30→17:21)
[2019-05-09] MEDS: ACETYLCYSTEINE 100MG/ML 10% VIAL 4ML INH SCH ×3 (01:12→16:49)
[2019-05-09] MEDS: IPRATROPIUM/ALBUTEROL 0.5-3(2.5)MG/3ML NEB HHN SCH ×6 (01:12→21:35)
[2019-05-09] MEDS: GUAIFENESIN/CODEINE 100-10MG/5ML UDC PO PRN ×2 (02:18→09:20)
[2019-05-09 04:00] VITALS: BP 135/65
[2019-05-09] MEDS: BENZONATATE 100MG CAPSULE PO SCH ×3 (06:29→22:39)
[2019-05-09] MEDS: KETOROLAC 30MG/ML VIAL IV PRN ×2 (06:30→12:56)
[2019-05-09 07:46] LABS: BASOPHILS % 0.2 % (0.0-2.0); HEMATOCRIT. 35.7 % (36.0-48.0); HEMOGLOBIN. 11.6 g/dL (12.0-16.0); LYMPHOCYTES % 9.6 % (20.0-50.0); MEAN CORPUSCULAR HEMOGLOBIN 28.3 pg (28.0-32.0); MEAN CORPUSCULAR VOLUME 87.6 fL (81.0-99.0); MEAN PLATELET VOLUME 10.8 fl (7.4-10.4); MONOCYTES % 8.8 % (2.0-8.0); NEUTROPHILS % 81.4 % (40.0-76.0); PLATELET 193 x1000/uL (130-400); RED BLOOD CELL COUNT 4.08 mill/uL (4.2-5.4); RED CELL DISTRIBUTION WIDTH 16.2 % (11.6-14.6)
[2019-05-09 08:00] VITALS: BP 121/61
[2019-05-09 08:17] LABS: CHLORIDE 108 mEq/L (98-107)
[2019-05-09] MEDS: GUAIFENESIN 600MG ER TABLET PO SCH ×2 (09:13→21:40)
[2019-05-09] MEDS: AMLODIPINE 5MG TABLET PO SCH ×2 (09:14→21:40)
[2019-05-09] MEDS: FAMOTIDINE 20MG/2ML VIAL IV SCH ×2 (09:14→21:40)
[2019-05-09] MEDS: FLUTICASONE PROPIONATE 50MCG/SPRAY BOTTLE BOTHNSTRLS SCH (10:00)
[2019-05-09 12:00] VITALS: BP 122/67
[2019-05-09] MEDS: CEFTRIAXONE 1 G PREMIX 50 ML IV SCH (15:05)
[2019-05-09] MEDS: AZITHROMYCIN 500 MG in DEXT 5% WATER 250 ML IV SCH (15:52)
[2019-05-09 16:00] VITALS: BP 117/60
[2019-05-09] MEDS: MONTELUKAST SODIUM 10MG TABLET PO SCH (17:21)
[2019-05-09] MEDS: ENOXAPARIN 40MG/0.4ML SYR SUBCUT SCH (17:21)
[2019-05-09 20:00] VITALS: BP 121/63
[2019-05-09] MEDS: LORATADINE 10MG TABLET PO SCH (21:40)
[2019-05-09] MEDS: THEOPHYLLINE ANHYDROUS 80 MG/15 ML 120ML PO SCH (21:42)
[2019-05-10] VITALS: BP 155/112
[2019-05-10] MEDS: METHYLPREDNISOLONE SOD SUCC 125 MG/2 ML VIAL IV SCH ×4 (00:24→20:54)
[2019-05-10] MEDS: KETOROLAC 30MG/ML VIAL IV PRN ×3 (00:26→21:02)
[2019-05-10] MEDS: IPRATROPIUM/ALBUTEROL 0.5-3(2.5)MG/3ML NEB HHN SCH ×6 (01:11→19:48)
[2019-05-10] MEDS: ACETYLCYSTEINE 100MG/ML 10% VIAL 4ML INH SCH ×3 (01:12→16:00)
[2019-05-10 04:00] VITALS: BP 134/59
[2019-05-10] MEDS: BENZONATATE 100MG CAPSULE PO SCH ×3 (05:35→20:54)
[2019-05-10] MEDS: GUAIFENESIN/CODEINE 100-10MG/5ML UDC PO PRN ×2 (05:36→09:18)
[2019-05-10] MEDS: THEOPHYLLINE ANHYDROUS 80 MG/15 ML 120ML PO SCH ×3 (05:41→21:06)
[2019-05-10 08:00] VITALS: BP 111/84
[2019-05-10] MEDS: AMLODIPINE 5MG TABLET PO SCH ×2 (09:11→20:54)
[2019-05-10] MEDS: FUROSEMIDE 40MG/4ML VIAL IVP SCH (09:12)
[2019-05-10] MEDS: GUAIFENESIN 600MG ER TABLET PO SCH ×2 (09:12→20:53)
[2019-05-10] MEDS: FAMOTIDINE 20MG/2ML VIAL IV SCH ×2 (09:12→20:54)
[2019-05-10 12:00] VITALS: BP 124/66
[2019-05-10] MEDS: HYDROCODONE/ACETAMINOPHEN 5/325MG TABLET PO PRN (14:57)
[2019-05-10] MEDS: CEFTRIAXONE 1 G PREMIX 50 ML IV SCH (15:12)
[2019-05-10 16:00] VITALS: BP 124/75
[2019-05-10] MEDS: AZITHROMYCIN 500 MG in DEXT 5% WATER 250 ML IV SCH (16:14)
[2019-05-10] MEDS: MONTELUKAST SODIUM 10MG TABLET PO SCH (16:14)
[2019-05-10] MEDS: ENOXAPARIN 40MG/0.4ML SYR SUBCUT SCH (17:40)
[2019-05-10 20:33] VITALS: BP 133/91
[2019-05-10] MEDS: LORATADINE 10MG TABLET PO SCH (20:54)
[2019-05-11] MEDS: IPRATROPIUM/ALBUTEROL 0.5-3(2.5)MG/3ML NEB HHN SCH ×6 (00:01→20:53)
[2019-05-11] MEDS: ACETYLCYSTEINE 100MG/ML 10% VIAL 4ML INH SCH ×3 (00:01→13:29)
[2019-05-11 00:12] VITALS: BP 132/60
[2019-05-11 04:00] VITALS: BP 96/60
[2019-05-11] MEDS: BENZONATATE 100MG CAPSULE PO SCH ×3 (06:48→16:02)
[2019-05-11] MEDS: METHYLPREDNISOLONE SOD SUCC 125 MG/2 ML VIAL IV SCH ×3 (06:49→21:40)
[2019-05-11] MEDS: THEOPHYLLINE ANHYDROUS 80 MG/15 ML 120ML PO SCH ×3 (06:53→21:49)
[2019-05-11 07:49] VITALS: BP 129/87
[2019-05-11] MEDS: FAMOTIDINE 20MG/2ML VIAL IV SCH ×2 (09:32→21:38)
[2019-05-11] MEDS: FUROSEMIDE 20MG TABLET PO SCH (09:32)
[2019-05-11] MEDS: GUAIFENESIN 600MG ER TABLET PO SCH ×2 (09:32→21:39)
[2019-05-11] MEDS: AMLODIPINE 5MG TABLET PO SCH ×2 (09:32→21:40)
[2019-05-11] MEDS: HYDROCODONE/ACETAMINOPHEN 5/325MG TABLET PO PRN ×2 (10:04→21:41)
[2019-05-11 12:00] VITALS: BP 149/79
[2019-05-11] MEDS: CEFTRIAXONE 1 G PREMIX 50 ML IV SCH (15:16)
[2019-05-11 16:00] VITALS: BP 129/59
[2019-05-11] MEDS: MONTELUKAST SODIUM 10MG TABLET PO SCH (16:02)
[2019-05-11] MEDS: AZITHROMYCIN 500 MG in DEXT 5% WATER 250 ML IV SCH (16:02)
[2019-05-11] MEDS: ENOXAPARIN 40MG/0.4ML SYR SUBCUT SCH (17:01)
[2019-05-11 20:11] VITALS: BP 142/70
[2019-05-11] MEDS: LORATADINE 10MG TABLET PO SCH (21:39)
[2019-05-12 00:10] VITALS: BP 111/48
[2019-05-12] MEDS: ACETYLCYSTEINE 100MG/ML 10% VIAL 4ML INH SCH ×3 (01:11→15:52)
[2019-05-12] MEDS: IPRATROPIUM/ALBUTEROL 0.5-3(2.5)MG/3ML NEB HHN SCH ×6 (01:11→21:58)
[2019-05-12 04:00] VITALS: BP 111/49
[2019-05-12] MEDS: METHYLPREDNISOLONE SOD SUCC 125 MG/2 ML VIAL IV SCH ×3 (05:51→21:19)
[2019-05-12] MEDS: THEOPHYLLINE ANHYDROUS 80 MG/15 ML 120ML PO SCH ×3 (05:51→21:23)
[2019-05-12] MEDS: HYDROCODONE/ACETAMINOPHEN 5/325MG TABLET PO PRN ×3 (06:00→22:07)
[2019-05-12] MEDS: BENZONATATE 100MG CAPSULE PO SCH ×3 (08:34→17:07)
[2019-05-12] MEDS: FAMOTIDINE 20MG/2ML VIAL IV SCH ×2 (08:34→21:20)
[2019-05-12] MEDS: FUROSEMIDE 20MG TABLET PO SCH (08:34)
[2019-05-12] MEDS: GUAIFENESIN 600MG ER TABLET PO SCH ×2 (08:35→21:22)
[2019-05-12] MEDS: AMLODIPINE 5MG TABLET PO SCH ×2 (08:35→21:22)
[2019-05-12 12:00] VITALS: BP 132/64
[2019-05-12 16:00] VITALS: BP 114/64
[2019-05-12] MEDS: CEFTRIAXONE 1 G PREMIX 50 ML IV SCH (16:11)
[2019-05-12] MEDS: MONTELUKAST SODIUM 10MG TABLET PO SCH (17:07)
[2019-05-12] MEDS: AZITHROMYCIN 500 MG in DEXT 5% WATER 250 ML IV SCH (17:07)
[2019-05-12 20:38] VITALS: BP 117/64
[2019-05-12] MEDS: ENOXAPARIN 30MG/0.3ML SYR SUBCUT SCH (21:20)
[2019-05-12] MEDS: LORATADINE 10MG TABLET PO SCH (21:21)
[2019-05-12] MEDS: GUAIFENESIN/CODEINE 100-10MG/5ML UDC PO PRN (22:09)
[2019-05-13 00:45] VITALS: BP 116/51
[2019-05-13] MEDS: IPRATROPIUM/ALBUTEROL 0.5-3(2.5)MG/3ML NEB HHN SCH ×3 (02:44→07:40)
[2019-05-13 04:00] VITALS: BP 138/80
[2019-05-13] MEDS: ACETYLCYSTEINE 100MG/ML 10% VIAL 4ML INH SCH (05:29)
[2019-05-13] MEDS: THEOPHYLLINE ANHYDROUS 80 MG/15 ML 120ML PO SCH (05:42)
[2019-05-13] MEDS: METHYLPREDNISOLONE SOD SUCC 125 MG/2 ML VIAL IV SCH (05:42)
[2019-05-13] MEDS: GUAIFENESIN/CODEINE 100-10MG/5ML UDC PO PRN ×2 (05:42→09:00)
[2019-05-13 08:00] VITALS: BP 132/75
[2019-05-13] MEDS ORDERED: ATOR10TA69 MT (08:15)
[2019-05-13] MEDS ORDERED: GUAI5LIQ8 PO (08:15)
[2019-05-13] MEDS ORDERED: ALBU18HF2 IH (08:15)
[2019-05-13] MEDS ORDERED: BENZ100C86 PO (08:15)
[2019-05-13] MEDS ORDERED: P20 MT (08:15)
[2019-05-13] MEDS ORDERED: MONT10TA21 PO (08:15)
[2019-05-13] MEDS ORDERED: PANT40TA4 MT (08:15)
[2019-05-13] MEDS ORDERED: FLUT1AER INH (08:15)
[2019-05-13] MEDS ORDERED: CLAR10 PO (08:15)
[2019-05-13] MEDS ORDERED: FURO20TA4 PO (08:15)
[2019-05-13] MEDS ORDERED: GUAI-735 MT (08:16)
[2019-05-13] MEDS: BENZONATATE 100MG CAPSULE PO SCH (08:59)
[2019-05-13] MEDS: GUAIFENESIN 600MG ER TABLET PO SCH (08:59)
[2019-05-13] MEDS: FAMOTIDINE 20MG/2ML VIAL IV SCH (08:59)
[2019-05-13] MEDS: AMLODIPINE 5MG TABLET PO SCH (09:00)
[2019-05-13] MEDS: ENOXAPARIN 30MG/0.3ML SYR SUBCUT SCH (09:00)
[2019-05-13] MEDS: FUROSEMIDE 20MG TABLET PO SCH (09:00)
[2019-05-13] MEDS: HYDROCODONE/ACETAMINOPHEN 5/325MG TABLET PO PRN (09:14)
[2019-05-13 11:30] VITALS: BP 132/75
== END 2019-05-13 12:45 | disposition home or self-care (01) | DRG 140 ==
LOC: ER 18:21 → 6WST 22:24 → EDBEDREQ 22:27 → EDBEDREQTM 22:27 → ENRESERV 05-06 14:28 → 6WST 05-06 16:19
PROVIDERS: ADMIT Internal Medicine; ATTEND Internal Medicine
DX: J44.0 Chronic obstructive pulmonary disease with (acute) lower respiratory infection (principal); J96.00 Acute respiratory failure, unspecified whether with hypoxia or hypercapnia; I50.33 Acute on chronic diastolic (congestive) heart failure; J18.1 Lobar pneumonia, unspecified organism; I11.0 Hypertensive heart disease with heart failure; J45.901 Unspecified asthma with (acute) exacerbation; I08.1 Rheumatic disorders of both mitral and tricuspid valves; F17.210 Nicotine dependence, cigarettes, uncomplicated; J44.1 Chronic obstructive pulmonary disease with (acute) exacerbation; E66.9 Obesity, unspecified; Z82.49 Family history of ischemic heart disease and other diseases of the circulatory system; Z92.21 Personal history of antineoplastic chemotherapy; Z85.3 Personal history of malignant neoplasm of breast; Z92.3 Personal history of irradiation; Z79.899 Other long term (current) drug therapy; Z71.3 Dietary counseling and surveillance; Z71.6 Tobacco abuse counseling; Z68.31 Body mass index [BMI] 31.0-31.9, adult
CPT/HCPCS: 36415; 36600; 71045; 76700; 80048; 80053; 82375; 82805; 82962; 83880; 84484; 85025; 87804; 93005; 93306; 94640; 97162; 99285; C1893; J0456; J0696; J1650; J1885; J1940; J1956; J2920; J2930; J3105; J3475; J3490; J7040; J7060; J7608; J7611; J7620; J7626

== ENCOUNTER 2021-04-18 22:53 | Inpatient (IN) | payer MEDICAID, OTHER ==
[~2021-04-18] VITALS: Ht 170.2 cm; Wt 113.4 kg
[~2021-04-18 22:53] MED LIST changes: +ALBU18HF2 IH; +ATOR10TA69 MT; +CLAR10 PO; +FLUT1AER INH; +FURO-151 MT; +FURO20TA4 PO
[2021-04-18] MEDS ORDERED: LORAZEPAM 2MG/ML CPJ IV ONE (23:15)
[2021-04-18 23:54] LABS: BASOPHILS % 0.9 % (0.0-2.0); HEMATOCRIT. 41.8 % (36.0-48.0); HEMOGLOBIN. 13.5 g/dL (12.0-16.0); LYMPHOCYTES % 43.3 % (20.0-50.0); MEAN CORPUSCULAR HEMOGLOBIN 29.5 pg (28.0-32.0); MEAN CORPUSCULAR VOLUME 91.4 fL (81.0-99.0); MEAN PLATELET VOLUME 10.3 fl (7.4-10.4); MONOCYTES % 10.7 % (2.0-8.0); NEUTROPHILS % 41.1 % (40.0-76.0); PLATELET 205 x1000/uL (130-400); RED BLOOD CELL COUNT 4.57 mill/uL (4.2-5.4)
[2021-04-19] MEDS ORDERED: ASPIRIN 81MG TABLET PO ONE
[2021-04-19 00:01] LABS: CHLORIDE 108 mEq/L (98-107)
[2021-04-19 00:04] LABS: ETHANOL BLOOD < 10 mg/dL
[2021-04-19] MEDS ORDERED: ONDANSETRON HCL 4MG/2ML INJ IV PRN (02:45)
[2021-04-19] MEDS ORDERED: DOCUSATE SODIUM 100MG CAPSULE PO PRN (02:45)
[2021-04-19] MEDS ORDERED: MAGNESIUM/ALUMINUM HYDROXIDE/SIMETHICONE 30ML UDC PO PRN (02:45)
[2021-04-19] MEDS ORDERED: IPRATROPIUM/ALBUTEROL 0.5-3(2.5)MG/3ML NEB HHN PRN (02:45)
[2021-04-19] MEDS ORDERED: ENOXAPARIN 40MG/0.4ML SYR SUBCUT SCH (02:45)
[2021-04-19] MEDS ORDERED: IOHEXOL-350 100 ML BOTTLE ONE ×2 (03:00→21:01)
[2021-04-19] MEDS ORDERED: NALOXONE HCL 0.4 MG/ML 1ML VIAL IV PRN (03:45)
[2021-04-19] MEDS: AMLODIPINE 10MG TABLET PO SCH ×2 (05:10→08:58)
[2021-04-19 05:53] LABS: CLARITY URINE CLEAR (CLEAR); COLOR URINE YELLOW (YELLOW); KETONES URINE NEGATIVE (NEGATIVE); LEUKOCYTE ESTERASE URINE 1+ (NEGATIVE); NITRITE URINE NEGATIVE (NEGATIVE); OCCULT BLOOD URINE TRACE (NEGATIVE); PROTEIN URINE NEGATIVE (NEGATIVE); SPECIFIC GRAVITY URINE 1.049 (1.005-1.030); UROBILINOGEN URINE 0.2 E.U./dL (0.2-1.0)
[2021-04-19 06:02] LABS: *AMPHETAMINES SCREEN URINE NEGATIVE (NEGATIVE); *BARBITURATES SCREEN URINE NEGATIVE (NEGATIVE)
[2021-04-19 06:03] LABS: *BENZODIAZEPINES SCREEN URINE NEGATIVE (NEGATIVE); *COCAINE SCREEN URINE NEGATIVE (NEGATIVE); METHADONE URINE SCREEN NEGATIVE (NEGATIVE); OPIATES URINE SCREEN NEGATIVE (NEGATIVE); PHENCYCLIDINE URINE SCREEN NEGATIVE (NEGATIVE)
[2021-04-19 06:06] LABS: CANNABINOID URINE SCREEN PRESUMTIVE POSITIVE (NEGATIVE)
[2021-04-19] MEDS: ENOXAPARIN 30MG/0.3ML SYR SUBCUT SCH ×2 (09:00→20:58)
[2021-04-19] MEDS: ACETAMINOPHEN 325MG TABLET PO PRN (09:25)
[2021-04-19 10:00] VITALS: BP 195/97
[2021-04-19] MEDS: CLONIDINE 0.1MG TABLET PO PRN (10:27)
[2021-04-19 10:30] VITALS: BP 195/97
[2021-04-19 13:27] VITALS: BP 134/61
[2021-04-19] MEDS: HYDRALAZINE HCL 100MG TABLET PO SCH ×2 (13:27→20:59)
[2021-04-19] MEDS: FUROSEMIDE 40MG TABLET PO SCH (13:27)
[2021-04-19] MEDS: CLOPIDOGREL 75MG TABLET PO SCH (13:27)
[2021-04-19] MEDS: HYDROCODONE/ACETAMINOPHEN 5/325MG TABLET PO PRN ×2 (13:34→20:59)
[2021-04-19] MEDS ORDERED: INFLUENZA VACCINE 05/PF 0.5 ML SYRINGE IM ONE (14:15)
[2021-04-19 15:30] LABS: PROTHROMBIN TIME 10.9 sec (9.6-11.0)
[2021-04-19 16:00] VITALS: BP 178/85
[2021-04-19] MEDS: BLOOD SUGAR DIAGNOSTIC STRIP TEST SCH ×2 (16:40→20:59)
[2021-04-19 17:16] LABS: BG CARBOXYHEMOGLOBIN 0.8 % (0.5-1.5); BG DEOXYHEMOGLOBIN 1.8 % (0.0-5.0); BG FRACTION INSPIRED OXYGEN 21; BG HCO3 ACT 23.8 mmol/L (22.0-26.0); BG METHEMOGLOBIN 0.2 % (0.0-1.5); BG OXYGEN SATURATION 98.2 % (92.0-98.5); BG OXYHEMOGLOBIN 97.2 % (94.0-97.0); BG PCO2 32.5 mmHg (35.0-45.0); BG PH 7.482 (7.350-7.450); BG PO2 100.9 mmHg (75.0-100.0); BG SAMPLE SITE LEFT RADIAL; BG VENT MODE ROOM AIR
[2021-04-19 20:00] VITALS: BP 207/83
[2021-04-19] MEDS: ATORVASTATIN CALCIUM 40MG TABLET PO SCH (20:59)
[2021-04-19 22:00] VITALS: BP 104/78
[2021-04-20] VITALS (12 sets, daily range): BP systolic 88–165; BP diastolic 45–149
[2021-04-20] MEDS: BLOOD SUGAR DIAGNOSTIC STRIP TEST SCH ×4 (06:16→21:00)
[2021-04-20] MEDS: HYDRALAZINE HCL 100MG TABLET PO SCH ×3 (06:16→22:10)
[2021-04-20 07:13] LABS: CHLORIDE 112 mEq/L (98-107)
[2021-04-20 07:14] LABS: BASOPHILS % 0.6 % (0.0-2.0); EOSINOPHILS % 2.3 % (0.0-5.0); HEMATOCRIT. 39.9 % (36.0-48.0); HEMOGLOBIN. 13.4 g/dL (12.0-16.0); MEAN CORPUSCULAR HEMOGLOBIN 30.1 pg (28.0-32.0); MEAN CORPUSCULAR VOLUME 89.6 fL (81.0-99.0); MEAN PLATELET VOLUME 10.7 fl (7.4-10.4); MONOCYTES % 11.7 % (2.0-8.0); NEUTROPHILS % 50.4 % (40.0-76.0); PLATELET 203 x1000/uL (130-400); RED BLOOD CELL COUNT 4.46 mill/uL (4.2-5.4); RED CELL DISTRIBUTION WIDTH 15.7 % (11.6-14.6)
[2021-04-20 07:23] LABS: HDL CHOLESTEROL 41 mg/dL (40-59); LDL CHOLESTEROL 122 mg/dL (5-100)
[2021-04-20] MEDS: FUROSEMIDE 40MG TABLET PO SCH ×2 (09:00→17:30)
[2021-04-20] MEDS: HYDROCODONE/ACETAMINOPHEN 5/325MG TABLET PO PRN (09:32)
[2021-04-20] MEDS: AMLODIPINE 10MG TABLET PO SCH (09:32)
[2021-04-20] MEDS: CLOPIDOGREL 75MG TABLET PO SCH (09:32)
[2021-04-20] MEDS: ENOXAPARIN 30MG/0.3ML SYR SUBCUT SCH ×2 (09:42→21:00)
[2021-04-20] MEDS: KETOROLAC 30MG/ML VIAL IV PRN ×2 (14:52→21:12)
[2021-04-20] MEDS ORDERED: POTASSIUM CHLORIDE 20MEQ TABLET SR PO NR (18:15)
[2021-04-20] MEDS: ATORVASTATIN CALCIUM 40MG TABLET PO SCH (21:12)
[2021-04-21] VITALS (35 sets, daily range): BP systolic 108–169; BP diastolic 43–101
[2021-04-21] MEDS: HYDRALAZINE HCL 100MG TABLET PO SCH ×3 (06:00→21:02)
[2021-04-21] MEDS: BLOOD SUGAR DIAGNOSTIC STRIP TEST SCH ×4 (06:34→21:02)
[2021-04-21] MEDS ORDERED: LIDOCAINE HCL 1% 20ML VIAL (Pyxis) INJ ONE (06:52)
[2021-04-21] MEDS ORDERED: BACITRACIN 15GM TUBE TOP ONE (06:52)
[2021-04-21] MEDS ORDERED: HEPARIN SODIUM 1,000 UNIT/1ML VIAL IV ONE (06:53)
[2021-04-21] MEDS ORDERED: BUPIVACAINE HCL/PF 0.5% (5MG/ML) 10ML ONE (06:53)
[2021-04-21] MEDS ORDERED: POLYMYXIN B SULFATE 500000 UNITS/VIAL ONE (06:53)
[2021-04-21] MEDS ORDERED: NICARDIPINE 40MG/200ML PREMIX 200 ML IV ONE (06:54)
[2021-04-21] MEDS ORDERED: THROMBIN (BOVINE) 5000 UNITS/VIAL TOP ONE (06:54)
[2021-04-21] MEDS ORDERED: NICARDIPINE 40MG/200ML PREMIX 200 ML IV PRN (07:30)
[2021-04-21] MEDS ORDERED: ROCURONIUM BROMIDE 10MG/ML VIAL 5ML IV ONE (07:38)
[2021-04-21] MEDS ORDERED: FENTANYL CITRATE/PF 50MCG/ML 2ML VIAL ONE (07:38)
[2021-04-21] MEDS ORDERED: NEOSTIGMINE METHYLSULFATE 1MG/ML 10 ML VIAL ONE (07:38)
[2021-04-21] MEDS ORDERED: SODIUM CHLORIDE 0.9% 10ML VIAL ONE (07:39)
[2021-04-21] MEDS ORDERED: MIDAZOLAM HCL 2 MG/2 ML VIAL ONE (07:39)
[2021-04-21] MEDS ORDERED: SUCCINYLCHOLINE CHLORIDE 200MG/10ML IV ONE (07:39)
[2021-04-21] MEDS ORDERED: GLYCOPYRROLATE 0.2 MG/ML 2ML VIAL ONE (07:39)
[2021-04-21] MEDS ORDERED: METOCLOPRAMIDE HCL 10MG/2ML VIAL ONE (07:39)
[2021-04-21] MEDS ORDERED: PROPOFOL 200MG/20ML VIAL IV ONE ×2 (07:39→09:12)
[2021-04-21] MEDS ORDERED: CEFAZOLIN SODIUM 1000MG/VIAL ONE (07:39)
[2021-04-21] MEDS ORDERED: PHENYLEPHRINE HCL 10 MG/ML 1ML (IV VIAL) IV ONE (07:39)
[2021-04-21] MEDS ORDERED: DEXAMETHASONE 4MG/ML 1ML VIAL ONE (07:39)
[2021-04-21] MEDS ORDERED: ONDANSETRON HCL 4MG/2ML INJ ONE (07:39)
[2021-04-21] MEDS ORDERED: HEPARIN 1000 UNITS/ML 10ML ONE (08:47)
[2021-04-21 08:48] LABS: HCG SCREEN NEGATIVE
[2021-04-21] MEDS: ENOXAPARIN 30MG/0.3ML SYR SUBCUT SCH ×2 (09:00→21:02)
[2021-04-21] MEDS ORDERED: HYDRALAZINE 20MG/ML VIAL ONE (09:00)
[2021-04-21] MEDS: AMLODIPINE 10MG TABLET PO SCH (09:00)
[2021-04-21] MEDS ORDERED: LABETALOL HCL 5MG/ML VIAL 20ML IV ONE (09:00)
[2021-04-21] MEDS: POTASSIUM CHLORIDE 20MEQ TABLET SR PO SCH (09:00)
[2021-04-21] MEDS: CLOPIDOGREL 75MG TABLET PO SCH (09:00)
[2021-04-21] MEDS: FUROSEMIDE 40MG TABLET PO SCH (09:00)
[2021-04-21] MEDS: MORPHINE SULFATE 2 MG/ML CPJ (NOT FOR IM USE) IV PRN ×2 (11:24→15:01)
[2021-04-21] MEDS: NICARDIPINE 50 MG in SODIUM CHLORIDE 0.9% 250 ML IV PRN ×3 (12:09→20:21)
[2021-04-21 12:15] LABS: BG BASE EXCESS -5.1 mmol/L (-2.0-2.0); BG CARBOXYHEMOGLOBIN 0.6 % (0.5-1.5); BG DEOXYHEMOGLOBIN 5.1 % (0.0-5.0); BG FRACTION INSPIRED OXYGEN 21; BG METHEMOGLOBIN 0.6 % (0.0-1.5); BG OXYGEN SATURATION 94.8 % (92.0-98.5); BG OXYHEMOGLOBIN 93.7 % (94.0-97.0); BG PCO2 28.4 mmHg (35.0-45.0); BG PH 7.419 (7.350-7.450); BG PO2 72.6 mmHg (75.0-100.0); BG SAMPLE SITE ALINE; BG TOTAL HEMOGLOBIN 13.7 g/dL (12.0-18.0); BG VENT MODE ROOM AIR
[2021-04-21] MEDS ORDERED: HYDROMORPHONE PCA 10MG/50ML IV PRN (14:00)
[2021-04-21] MEDS ORDERED: NALOXONE INJ IV PRN (14:00)
[2021-04-21] MEDS ORDERED: ONDANSETRON INJ IV PRN (14:00)
[2021-04-21] MEDS ORDERED: DIPHENHYDRAMINE INJ IV PRN (14:00)
[2021-04-21] MEDS: ATORVASTATIN CALCIUM 40MG TABLET PO SCH (21:02)
[2021-04-22] VITALS (71 sets, daily range): BP systolic 72–192; BP diastolic 33–167
[2021-04-22] MEDS: NICARDIPINE 50 MG in SODIUM CHLORIDE 0.9% 250 ML IV PRN ×2 (01:38→07:17)
[2021-04-22] MEDS: HYDRALAZINE HCL 100MG TABLET PO SCH ×3 (05:00→21:49)
[2021-04-22 05:54] LABS: BASOPHILS % 0.2 % (0.0-2.0); HEMATOCRIT. 38.1 % (36.0-48.0); HEMOGLOBIN. 12.5 g/dL (12.0-16.0); LYMPHOCYTES % 10.1 % (20.0-50.0); MEAN CORPUSCULAR HEMOGLOBIN 29.6 pg (28.0-32.0); MEAN CORPUSCULAR VOLUME 90.1 fL (81.0-99.0); MEAN PLATELET VOLUME 10.3 fl (7.4-10.4); MONOCYTES % 11.5 % (2.0-8.0); NEUTROPHILS % 78.2 % (40.0-76.0); PLATELET 211 x1000/uL (130-400); RED BLOOD CELL COUNT 4.23 mill/uL (4.2-5.4)
[2021-04-22 05:56] LABS: CHLORIDE 112 mEq/L (98-107)
[2021-04-22 06:04] LABS: LDL CHOLESTEROL 93 mg/dL (5-100)
[2021-04-22 06:06] LABS: HDL CHOLESTEROL 49 mg/dL (40-59)
[2021-04-22] MEDS: BLOOD SUGAR DIAGNOSTIC STRIP TEST SCH ×4 (06:58→21:07)
[2021-04-22] MEDS: AMLODIPINE 10MG TABLET PO SCH (08:31)
[2021-04-22] MEDS: FUROSEMIDE 40MG TABLET PO SCH (08:31)
[2021-04-22] MEDS: CLOPIDOGREL 75MG TABLET PO SCH (08:31)
[2021-04-22] MEDS: ENOXAPARIN 30MG/0.3ML SYR SUBCUT SCH ×2 (08:32→21:10)
[2021-04-22] MEDS: POTASSIUM CHLORIDE 20MEQ TABLET SR PO SCH (08:32)
[2021-04-22] MEDS: CLONIDINE 0.1MG TABLET PO PRN (09:32)
[2021-04-22 10:02] LABS: BG BASE EXCESS -2.9 mmol/L (-2.0-2.0); BG CARBOXYHEMOGLOBIN 0.7 % (0.5-1.5); BG DEOXYHEMOGLOBIN 2.1 % (0.0-5.0); BG FRACTION INSPIRED OXYGEN 21; BG HCO3 ACT 20.2 mmol/L (22.0-26.0); BG METHEMOGLOBIN 0.2 % (0.0-1.5); BG OXYGEN SATURATION 97.9 % (92.0-98.5); BG PCO2 30.6 mmHg (35.0-45.0); BG PH 7.438 (7.350-7.450); BG PO2 95.7 mmHg (75.0-100.0); BG SAMPLE SITE RIGHT RADIAL; BG TOTAL HEMOGLOBIN 13.1 g/dL (12.0-18.0); BG VENT MODE ROOM AIR
[2021-04-22] MEDS: LOSARTAN POTASSIUM 100 MG TABLET PO SCH (10:31)
[2021-04-22] MEDS: ATORVASTATIN CALCIUM 40MG TABLET PO SCH (21:10)
[2021-04-23] VITALS (37 sets, daily range): BP systolic 67–168; BP diastolic 40–115
[2021-04-23] MEDS: HYDRALAZINE HCL 100MG TABLET PO SCH ×3 (06:21→21:09)
[2021-04-23] MEDS: POTASSIUM CHLORIDE 20MEQ TABLET SR PO SCH (09:24)
[2021-04-23] MEDS: LOSARTAN POTASSIUM 100 MG TABLET PO SCH (09:24)
[2021-04-23] MEDS: AMLODIPINE 10MG TABLET PO SCH (09:25)
[2021-04-23] MEDS: FUROSEMIDE 40MG TABLET PO SCH (09:25)
[2021-04-23] MEDS: CLOPIDOGREL 75MG TABLET PO SCH (09:25)
[2021-04-23] MEDS: ENOXAPARIN 30MG/0.3ML SYR SUBCUT SCH ×2 (09:25→21:09)
[2021-04-23] MEDS: ATORVASTATIN CALCIUM 40MG TABLET PO SCH (21:09)
[2021-04-23] MEDS: MORPHINE SULFATE 2 MG/ML CPJ (NOT FOR IM USE) IV PRN (21:10)
[2021-04-24] VITALS (21 sets, daily range): BP systolic 97–154; BP diastolic 50–96
[2021-04-24] MEDS ORDERED: PROPOFOL 10MG/ML 100ML 100 ML IV PRN (03:30)
[2021-04-24] MEDS ORDERED: FENTANYL CITRATE/PF 2,500 MCG in SODIUM CHLORIDE 0.9% 200 ML IV PRN (03:30)
[2021-04-24] MEDS: HYDRALAZINE HCL 100MG TABLET PO SCH ×3 (05:13→21:11)
[2021-04-24] MEDS: POTASSIUM CHLORIDE 20MEQ TABLET SR PO SCH (08:04)
[2021-04-24] MEDS: CLOPIDOGREL 75MG TABLET PO SCH (08:04)
[2021-04-24] MEDS: ENOXAPARIN 30MG/0.3ML SYR SUBCUT SCH ×2 (08:04→20:21)
[2021-04-24] MEDS: AMLODIPINE 10MG TABLET PO SCH (08:05)
[2021-04-24] MEDS: FUROSEMIDE 40MG TABLET PO SCH (08:05)
[2021-04-24] MEDS: LOSARTAN POTASSIUM 100 MG TABLET PO SCH (08:05)
[2021-04-24] MEDS: ATORVASTATIN CALCIUM 40MG TABLET PO SCH (20:20)
[2021-04-24] MEDS: MORPHINE SULFATE 2 MG/ML CPJ (NOT FOR IM USE) IV PRN (21:12)
[2021-04-25] VITALS (7 sets, daily range): BP systolic 120–155; BP diastolic 66–113
[2021-04-25] MEDS: HYDRALAZINE HCL 100MG TABLET PO SCH ×3 (05:16→21:45)
[2021-04-25] MEDS: FUROSEMIDE 40MG TABLET PO SCH (08:32)
[2021-04-25] MEDS: POTASSIUM CHLORIDE 20MEQ TABLET SR PO SCH (08:32)
[2021-04-25] MEDS: LOSARTAN POTASSIUM 100 MG TABLET PO SCH (08:32)
[2021-04-25] MEDS: ENOXAPARIN 30MG/0.3ML SYR SUBCUT SCH ×2 (08:32→21:45)
[2021-04-25] MEDS: AMLODIPINE 10MG TABLET PO SCH (08:32)
[2021-04-25] MEDS: CLOPIDOGREL 75MG TABLET PO SCH (08:32)
[2021-04-25 12:33] LABS: BASOPHILS % 0.9 % (0.0-2.0); EOSINOPHILS % 1.8 % (0.0-5.0); HEMATOCRIT. 37.5 % (36.0-48.0); HEMOGLOBIN. 12.2 g/dL (12.0-16.0); LYMPHOCYTES % 29.9 % (20.0-50.0); MEAN CORPUSCULAR HEMOGLOBIN 29.2 pg (28.0-32.0); MEAN PLATELET VOLUME 10.7 fl (7.4-10.4); MONOCYTES % 10.1 % (2.0-8.0); NEUTROPHILS % 57.3 % (40.0-76.0); PLATELET 214 x1000/uL (130-400); RED BLOOD CELL COUNT 4.16 mill/uL (4.2-5.4); RED CELL DISTRIBUTION WIDTH 15.5 % (11.6-14.6)
[2021-04-25 12:40] LABS: CHLORIDE 109 mEq/L (98-107)
[2021-04-25] MEDS: ATORVASTATIN CALCIUM 40MG TABLET PO SCH (21:45)
[2021-04-25] MEDS: ACETAMINOPHEN 325MG TABLET PO PRN (23:24)
[2021-04-26] VITALS: BP 134/47
[2021-04-26 04:00] VITALS: BP 98/65
[2021-04-26] MEDS: HYDRALAZINE HCL 100MG TABLET PO SCH ×3 (06:00→21:38)
[2021-04-26] MEDS: ACETAMINOPHEN 325MG TABLET PO PRN (06:17)
[2021-04-26 08:00] VITALS: BP 137/66
[2021-04-26] MEDS: LACTULOSE 20G/30ML UDC PO PRN (08:53)
[2021-04-26] MEDS: ENOXAPARIN 30MG/0.3ML SYR SUBCUT SCH ×2 (08:54→21:38)
[2021-04-26] MEDS: LOSARTAN POTASSIUM 100 MG TABLET PO SCH (08:54)
[2021-04-26] MEDS: AMLODIPINE 10MG TABLET PO SCH (08:54)
[2021-04-26] MEDS: FUROSEMIDE 40MG TABLET PO SCH (08:54)
[2021-04-26] MEDS: CLOPIDOGREL 75MG TABLET PO SCH (08:54)
[2021-04-26] MEDS: HYDROCODONE/APAP 7.5/325MG 1 TAB TABLET PO PRN ×2 (10:16→21:39)
[2021-04-26] MEDS: HYDROCORTISONE ACETATE 25MG SUPP PR SCH ×2 (10:45→21:00)
[2021-04-26 12:00] VITALS: BP 133/55
[2021-04-26 16:00] VITALS: BP 121/66
[2021-04-26 20:00] VITALS: BP 104/81
[2021-04-26] MEDS: ATORVASTATIN CALCIUM 40MG TABLET PO SCH (21:37)
[2021-04-27] VITALS: BP 134/54
[2021-04-27] MEDS: LACTULOSE 20G/30ML UDC PO PRN (00:07)
[2021-04-27 04:00] VITALS: BP 117/53
[2021-04-27] MEDS: HYDRALAZINE HCL 100MG TABLET PO SCH ×3 (06:17→21:30)
[2021-04-27 08:00] VITALS: BP 126/56
[2021-04-27] MEDS: LOSARTAN POTASSIUM 100 MG TABLET PO SCH (08:51)
[2021-04-27] MEDS: AMLODIPINE 10MG TABLET PO SCH (08:51)
[2021-04-27] MEDS: FUROSEMIDE 40MG TABLET PO SCH (08:51)
[2021-04-27] MEDS: ENOXAPARIN 30MG/0.3ML SYR SUBCUT SCH ×2 (08:51→21:32)
[2021-04-27] MEDS: CLOPIDOGREL 75MG TABLET PO SCH (08:51)
[2021-04-27] MEDS: HYDROCORTISONE ACETATE 25MG SUPP PR SCH ×2 (08:52→21:00)
[2021-04-27] MEDS ORDERED: IPRATROPIUM/ALBUTEROL 0.5-3(2.5)MG/3ML NEB HHN PRN (09:45)
[2021-04-27 11:26] LABS: CHLORIDE 111 mEq/L (98-107)
[2021-04-27 12:00] VITALS: BP 99/45
[2021-04-27 16:00] VITALS: BP 107/72
[2021-04-27 20:00] VITALS: BP 134/53
[2021-04-27] MEDS: ATORVASTATIN CALCIUM 40MG TABLET PO SCH (21:30)
[2021-04-27] MEDS: HYDROCODONE/APAP 7.5/325MG 1 TAB TABLET PO PRN (21:32)
[2021-04-28] VITALS (7 sets, daily range): BP systolic 103–136; BP diastolic 42–72
[2021-04-28] MEDS: HYDRALAZINE HCL 100MG TABLET PO SCH ×3 (05:51→21:10)
[2021-04-28] MEDS: HYDROCORTISONE ACETATE 25MG SUPP PR SCH ×2 (09:00→21:00)
[2021-04-28] MEDS: FUROSEMIDE 40MG TABLET PO SCH (09:10)
[2021-04-28] MEDS: LOSARTAN POTASSIUM 100 MG TABLET PO SCH (09:10)
[2021-04-28] MEDS: AMLODIPINE 10MG TABLET PO SCH (09:11)
[2021-04-28] MEDS: CLOPIDOGREL 75MG TABLET PO SCH (09:11)
[2021-04-28] MEDS: ENOXAPARIN 30MG/0.3ML SYR SUBCUT SCH ×2 (09:12→21:09)
[2021-04-28] MEDS: ATORVASTATIN CALCIUM 40MG TABLET PO SCH (21:10)
[2021-04-28] MEDS: HYDROCODONE/APAP 7.5/325MG 1 TAB TABLET PO PRN (21:41)
[2021-04-29 04:00] VITALS: BP 107/51
[2021-04-29] MEDS: HYDRALAZINE HCL 100MG TABLET PO SCH ×3 (05:10→21:05)
[2021-04-29 08:09] VITALS: BP 112/59
[2021-04-29] MEDS: CLOPIDOGREL 75MG TABLET PO SCH (08:39)
[2021-04-29] MEDS: LOSARTAN POTASSIUM 100 MG TABLET PO SCH (08:39)
[2021-04-29] MEDS: ENOXAPARIN 30MG/0.3ML SYR SUBCUT SCH ×2 (08:39→21:05)
[2021-04-29] MEDS: FUROSEMIDE 40MG TABLET PO SCH (08:39)
[2021-04-29] MEDS: AMLODIPINE 10MG TABLET PO SCH (08:39)
[2021-04-29] MEDS: HYDROCORTISONE ACETATE 25MG SUPP PR SCH ×2 (08:40→21:00)
[2021-04-29 12:00] VITALS: BP 103/67
[2021-04-29 16:00] VITALS: BP 112/43
[2021-04-29 20:00] VITALS: BP 125/65
[2021-04-29] MEDS: ATORVASTATIN CALCIUM 40MG TABLET PO SCH (21:05)
[2021-04-29] MEDS: HYDROCODONE/APAP 7.5/325MG 1 TAB TABLET PO PRN (23:56)
[2021-04-29 23:58] VITALS: BP 146/50
[2021-04-30 04:00] VITALS: BP 106/53
[2021-04-30] MEDS: HYDRALAZINE HCL 100MG TABLET PO SCH ×3 (05:16→21:55)
[2021-04-30 08:00] VITALS: BP 104/70
[2021-04-30] MEDS: FUROSEMIDE 40MG TABLET PO SCH (10:50)
[2021-04-30] MEDS: LOSARTAN POTASSIUM 100 MG TABLET PO SCH (10:50)
[2021-04-30] MEDS: HYDROCORTISONE ACETATE 25MG SUPP PR SCH ×2 (10:50→21:00)
[2021-04-30] MEDS: CLOPIDOGREL 75MG TABLET PO SCH (10:50)
[2021-04-30] MEDS: ENOXAPARIN 30MG/0.3ML SYR SUBCUT SCH ×2 (10:50→21:56)
[2021-04-30 12:00] VITALS: BP 110/54
[2021-04-30] MEDS: AMLODIPINE 10MG TABLET PO SCH (13:53)
[2021-04-30 16:06] VITALS: BP 116/66
[2021-04-30 20:00] VITALS: BP 118/63
[2021-04-30] MEDS: ATORVASTATIN CALCIUM 40MG TABLET PO SCH (21:54)
[2021-04-30] MEDS: HYDROCODONE/APAP 7.5/325MG 1 TAB TABLET PO PRN (22:45)
[2021-04-30 23:41] VITALS: BP 108/58
[2021-05-01 04:00] VITALS: BP 110/51
[2021-05-01] MEDS: HYDRALAZINE HCL 100MG TABLET PO SCH ×3 (05:06→22:15)
[2021-05-01 08:00] VITALS: BP 113/65
[2021-05-01] MEDS: HYDROCORTISONE ACETATE 25MG SUPP PR SCH ×2 (09:00→21:00)
[2021-05-01] MEDS: AMLODIPINE 10MG TABLET PO SCH ×2 (09:00→12:12)
[2021-05-01] MEDS: LOSARTAN POTASSIUM 100 MG TABLET PO SCH ×2 (09:00→12:12)
[2021-05-01] MEDS: FUROSEMIDE 40MG TABLET PO SCH ×2 (09:00→12:13)
[2021-05-01] MEDS: ENOXAPARIN 30MG/0.3ML SYR SUBCUT SCH ×2 (10:11→22:16)
[2021-05-01] MEDS: CLOPIDOGREL 75MG TABLET PO SCH (10:11)
[2021-05-01 12:00] VITALS: BP 133/85
[2021-05-01 15:46] VITALS: BP 121/61
[2021-05-01 20:00] VITALS: BP 118/54
[2021-05-01] MEDS: ATORVASTATIN CALCIUM 40MG TABLET PO SCH (22:15)
[2021-05-01] MEDS: ACETAMINOPHEN 325MG TABLET PO PRN (22:30)
[2021-05-02] VITALS: BP 112/55
[2021-05-02 04:00] VITALS: BP 104/46
[2021-05-02] MEDS: HYDRALAZINE HCL 100MG TABLET PO SCH ×3 (06:00→21:39)
[2021-05-02 08:00] VITALS: BP 110/44
[2021-05-02] MEDS: AMLODIPINE 10MG TABLET PO SCH (08:31)
[2021-05-02] MEDS: LOSARTAN POTASSIUM 100 MG TABLET PO SCH (08:31)
[2021-05-02] MEDS: HYDROCORTISONE ACETATE 25MG SUPP PR SCH ×2 (08:31→21:00)
[2021-05-02] MEDS: CLOPIDOGREL 75MG TABLET PO SCH (08:46)
[2021-05-02] MEDS: ENOXAPARIN 30MG/0.3ML SYR SUBCUT SCH ×2 (08:46→21:42)
[2021-05-02] MEDS: FUROSEMIDE 40MG TABLET PO SCH (08:46)
[2021-05-02 12:00] VITALS: BP 127/57
[2021-05-02 16:00] VITALS: BP 114/47
[2021-05-02 20:00] VITALS: BP 117/58
[2021-05-02] MEDS: ATORVASTATIN CALCIUM 40MG TABLET PO SCH (21:41)
[2021-05-02] MEDS: HYDROCODONE/APAP 7.5/325MG 1 TAB TABLET PO PRN (21:43)
[2021-05-03] VITALS: BP 112/43
[2021-05-03 04:00] VITALS: BP 109/50
[2021-05-03] MEDS: HYDRALAZINE HCL 100MG TABLET PO SCH ×3 (05:20→22:00)
[2021-05-03 06:41] LABS: HEMATOCRIT 32.7 % (36.0-48.0); HEMOGLOBIN 10.6 g/dL (12.0-16.0); MEAN CORPUSCULAR HEMOGLOBIN 29.7 pg (28.0-32.0); MEAN CORPUSCULAR VOLUME 91.7 fL (81.0-99.0); PLATELET 238 x1000/uL (130-400); RED BLOOD CELL COUNT 3.57 mill/uL (4.2-5.4); RED CELL DISTRIBUTION WIDTH 16.1 % (11.6-14.6)
[2021-05-03 06:51] LABS: CHLORIDE 113 mEq/L (98-107)
[2021-05-03 08:00] VITALS: BP 121/47
[2021-05-03] MEDS: HYDROCORTISONE ACETATE 25MG SUPP PR SCH ×2 (09:00→21:00)
[2021-05-03] MEDS: FUROSEMIDE 40MG TABLET PO SCH (09:48)
[2021-05-03] MEDS: AMLODIPINE 10MG TABLET PO SCH (09:48)
[2021-05-03] MEDS: CLOPIDOGREL 75MG TABLET PO SCH (09:48)
[2021-05-03] MEDS: LOSARTAN POTASSIUM 100 MG TABLET PO SCH (09:49)
[2021-05-03] MEDS: ENOXAPARIN 30MG/0.3ML SYR SUBCUT SCH ×2 (09:49→22:36)
[2021-05-03] MEDS: ACETAMINOPHEN 325MG TABLET PO PRN ×2 (09:58→18:10)
[2021-05-03 16:00] VITALS: BP 110/43
[2021-05-03 20:00] VITALS: BP 140/69
[2021-05-03] MEDS: HYDROCODONE/APAP 7.5/325MG 1 TAB TABLET PO PRN (22:36)
[2021-05-03] MEDS: ATORVASTATIN CALCIUM 40MG TABLET PO SCH (22:37)
[2021-05-04] VITALS: BP 115/53
[2021-05-04 04:00] VITALS: BP 124/61
[2021-05-04] MEDS: HYDRALAZINE HCL 100MG TABLET PO SCH ×2 (06:07→13:43)
[2021-05-04 08:00] VITALS: BP 132/60
[2021-05-04] MEDS: FUROSEMIDE 40MG TABLET PO SCH (09:05)
[2021-05-04] MEDS: LOSARTAN POTASSIUM 100 MG TABLET PO SCH (09:05)
[2021-05-04] MEDS: AMLODIPINE 10MG TABLET PO SCH (09:06)
[2021-05-04] MEDS: CLOPIDOGREL 75MG TABLET PO SCH (09:06)
[2021-05-04] MEDS: HYDROCORTISONE ACETATE 25MG SUPP PR SCH ×2 (09:06→09:11)
[2021-05-04] MEDS: ENOXAPARIN 30MG/0.3ML SYR SUBCUT SCH (09:06)
[2021-05-04 11:52] VITALS: BP 122/71
[2021-05-04] MEDS: HYDROCODONE/APAP 7.5/325MG 1 TAB TABLET PO PRN (14:00)
[2021-05-04 15:47] VITALS: BP 122/71
[2021-05-04 16:30] VITALS: BP 121/60
== END 2021-05-04 18:34 | DRG 24 ==
LOC: ER 22:53 → 7EST 04-19 02:10 → EDBEDREQSVC 04-19 03:53 → EDBEDREQTM 04-19 03:53 → ENRESERV 04-19 08:59 → CANRESERV 04-19 08:59 → ENRESERV 04-19 09:04 → 3WST 04-19 21:38 → CVICU 04-21 09:34 → 6WST 04-25 15:00
PROVIDERS: ADMIT Hospitalist; ATTEND Hospitalist
PROC: 03CJ0ZZ Extirpation of Matter from Left Common Carotid Artery, Open Approach (ICD-10-PCS; principal; 2021-04-21)
PROC: 03CL0ZZ Extirpation of Matter from Left Internal Carotid Artery, Open Approach (ICD-10-PCS; 2021-04-21)
PROC: 03CN0ZZ Extirpation of Matter from Left External Carotid Artery, Open Approach (ICD-10-PCS; 2021-04-21)
PROC: 4A10X4Z Monitoring of Central Nervous Electrical Activity, External Approach (ICD-10-PCS; 2021-04-22)
DX: I63.81 Other cerebral infarction due to occlusion or stenosis of small artery (principal); E66.01 Morbid (severe) obesity due to excess calories; I16.0 Hypertensive urgency; I25.10 Atherosclerotic heart disease of native coronary artery without angina pectoris; I65.22 Occlusion and stenosis of left carotid artery; J44.9 Chronic obstructive pulmonary disease, unspecified; Z20.822 Contact with and (suspected) exposure to COVID-19; F17.210 Nicotine dependence, cigarettes, uncomplicated; I10 Essential (primary) hypertension; Z95.5 Presence of coronary angioplasty implant and graft; Z98.51 Tubal ligation status; Z79.899 Other long term (current) drug therapy; Z71.6 Tobacco abuse counseling; Z68.39 Body mass index [BMI] 39.0-39.9, adult
CPT/HCPCS: 36415; 36600; 70496; 70498; 70551; 71045; 80048; 80053; 80061; 80305; 80320; 81003; 82375; 82805; 82962; 84484; 84703; 85025; 85027; 85384; 86850; 86900; 86920; 87426; 88304; 88305; 88311; 88331; 92523; 93005; 93970; 95816; 97110; 97112; 97116; 97163; 97166; 97530; 99285; J0330; J0360; J0690; J1100; J1170; J1644; J1650; J1885; J2060; J2250; J2270; J2370; J2405; J2704; J2710; J2765; J3010; J3490; J7030; J7040; J7050; Q9967; G0480

== ENCOUNTER 2022-05-25 19:09 | Inpatient (IN) | payer MEDICAID, OTHER ==
[~2022-05-25] VITALS: Ht 177.8 cm; Wt 105.7 kg
[~2022-05-25 19:09] MED LIST changes: +CLOP-31 MT
[2022-05-25] MEDS ORDERED: LABETALOL 5MG/ML SYR 20 MG/4 ML SYRINGE IV ONE (19:45)
[2022-05-25 20:15] LABS: BASOPHILS % 0.9 % (0.0-2.0); EOSINOPHILS % 4.2 % (0.0-5.0); HEMOGLOBIN. 10.5 g/dL (12.0-16.0); LYMPHOCYTES % 41.8 % (20.0-50.0); MEAN CORPUSCULAR HEMOGLOBIN 28.2 pg (28.0-32.0); MEAN CORPUSCULAR VOLUME 86.5 fL (81.0-99.0); MEAN PLATELET VOLUME 9.3 fl (7.4-10.4); MONOCYTES % 10.5 % (2.0-8.0); NEUTROPHILS % 42.6 % (40.0-76.0); PLATELET 231 x1000/uL (130-400); RED CELL DISTRIBUTION WIDTH 18.1 % (11.6-14.6)
[2022-05-25 20:23] LABS: CHLORIDE 109 mEq/L (98-107)
[2022-05-25 21:17] LABS: HCG SCREEN NEGATIVE
[2022-05-26] MEDS ORDERED: AMLODIPINE 5MG TABLET PO ONE (00:15)
[2022-05-26] MEDS ORDERED: AMLODIPINE 5MG TABLET PO NR (04:15)
[2022-05-26] MEDS: LABETALOL 5MG/ML SYR 20 MG/4 ML SYRINGE IV NR ×2 (04:23→04:26)
[2022-05-26] MEDS ORDERED: HYDROCHLOROTHIAZIDE 25MG TABLET PO SCH (09:00)
[2022-05-26] MEDS ORDERED: ONDANSETRON HCL 4MG/2ML INJ IV PRN (09:00)
[2022-05-26] MEDS ORDERED: LOSARTAN POTASSIUM 100 MG TABLET PO SCH (09:00)
[2022-05-26] MEDS ORDERED: ASPIRIN 81MG TABLET PO SCH (09:00)
[2022-05-26] MEDS ORDERED: ACETAMINOPHEN 325MG TABLET PO PRN (09:00)
[2022-05-26] MEDS ORDERED: ENOXAPARIN 30MG/0.3ML SYR SUBCUT SCH (09:30)
[2022-05-26] MEDS ORDERED: HYDRALAZINE HCL 50MG TABLET PO NR (15:00)
[2022-05-26] MEDS ORDERED: HYDR-4135 MT (15:52)
[2022-05-26 17:04] VITALS: BP 145/65
[2022-05-26] MEDS ORDERED: ATORVASTATIN CALCIUM 40MG TABLET PO SCH (21:00)
== END 2022-05-26 18:18 | disposition home or self-care (01) | DRG 199 ==
LOC: ER 19:24 → MICUSO 05-26 00:02 → EDBEDREQ 05-26 00:31 → EDBEDREQTM 05-26 00:31 → 7WST 05-26 13:54
PROVIDERS: ADMIT Internal Medicine; ATTEND Internal Medicine
DX: I16.1 Hypertensive emergency (principal); E44.1 Mild protein-calorie malnutrition; D64.9 Anemia, unspecified; H53.8 Other visual disturbances; I10 Essential (primary) hypertension; J44.9 Chronic obstructive pulmonary disease, unspecified; Z86.73 Personal history of transient ischemic attack (TIA), and cerebral infarction without residual deficits; Z98.51 Tubal ligation status; Z68.33 Body mass index [BMI] 33.0-33.9, adult
CPT/HCPCS: 36415; 71045; 80053; 83880; 84484; 84703; 85025; 93005; 99285; J3490

== ENCOUNTER 2022-09-01 18:06 | Emergency (ER) | payer MEDICAID ==
[~2022-09-01] VITALS: Ht 177.8 cm; Wt 111.0 kg
[~2022-09-01 18:06] MED LIST changes: +HYDR-4135 MT; +MONT-46 PO; -MONT10TA21 PO
[2022-09-01 18:30] VITALS: BP 189/85
[2022-09-01] MEDS ORDERED: KETOROLAC 60MG/2ML VIAL IM ONE (18:30)
[2022-09-01 19:54] LABS: CHLORIDE 109 mEq/L (98-107)
[2022-09-01 19:59] LABS: BASOPHILS % 0.7 % (0.0-2.0); EOSINOPHILS % 3.7 % (0.0-5.0); HEMATOCRIT. 30.7 % (36.0-48.0); LYMPHOCYTES % 34.2 % (20.0-50.0); MEAN CORPUSCULAR HEMOGLOBIN 27.6 pg (28.0-32.0); MEAN CORPUSCULAR VOLUME 84.3 fL (81.0-99.0); MEAN PLATELET VOLUME 8.5 fl (7.4-10.4); MONOCYTES % 10.4 % (2.0-8.0); PLATELET 312 x1000/uL (130-400); RED BLOOD CELL COUNT 3.65 mill/uL (4.2-5.4)
== END 2022-09-01 22:46 | disposition home or self-care (01) ==
LOC: ER 18:06
DX: M54.41 Lumbago with sciatica, right side (principal); G89.29 Other chronic pain; J45.909 Unspecified asthma, uncomplicated; I10 Essential (primary) hypertension; Z86.73 Personal history of transient ischemic attack (TIA), and cerebral infarction without residual deficits
CPT/HCPCS: 36415; 80053; 85025; 93971; 96372; 99285